=== PATIENT | male | born 1955 | race Caucasian/White ===

== ENCOUNTER 2018-04-09 11:27 | Inpatient (IN) | payer BC, OTHER ==
[~2018-04-09] VITALS: Ht 160 cm; Wt 67.2 kg
[~2018-04-09 11:27] MED LIST: AMLO10TA8 PO; BACL20TA PO; FOSI40TA4 PO; TRAM50TA PO
[2018-04-09] MEDS ORDERED: ONDANSETRON PF 4 MG/2 ML VIAL. IV ONE (11:45)
[2018-04-09] MEDS ORDERED: MORPHINE SULFATE 4 MG/ML VIAL. IV ONE (11:45)
--- NOTE | 2018-04-09 11:45 | PHYS DOC ---
Past Medical History Past Medical History: Arthritis, Hypertension, Other Additional Past Medical Histor: alcohol abuse Past Surgical History: No Surgical History Alcohol Use: Heavy Drug Use: None Adult General Chief Complaint Chief Complaint: GI PROBLEM HPI HPI Patient is a 62 year old male who presents with abdominal pain, nausea, vomiting. Patient also complaint of severe diarrhea, bloody stool. The symptoms started last night. He denies any fever, no recent antibiotic usage. Patient denies any chest pain, no trouble breathing. Patient is not on any blood thinner. Review of Systems Review of Systems Constitutional: Denies fever or chills [] Eyes: Denies change in visual acuity, redness, or eye pain [] HENT: Denies nasal congestion or sore throat [] Respiratory: Denies cough or shortness of breath [] Cardiovascular: No additional information not addressed in HPI [] GI: Positive for abdominal pain, nausea, vomiting, bloody diarrhea [] : Denies dysuria or hematuria [] Musculoskeletal: Denies back pain or joint pain [] Integument: Denies rash or skin lesions [] Neurologic: Denies headache, focal weakness or sensory changes [] Endocrine: Denies polyuria or polydipsia [] All other systems were reviewed and found to be within normal limits, except as documented in this note. Current Medications Current Medications Current Medications Medications (Trade) Dose Ordered Sig/[facility] Start Time Stop Time Status Last Admin Dose Admin Ciprofloxacin/ Dextrose 200 ml @ 200 mls/hr 1X ONCE 04/09/18 13:45 04/09/18 14:44 DC 04/09/18 13:56 200 MLS/HR Iohexol (Omnipaque 300 Mg/ml) 75 ml 1X ONCE 04/09/18 13:00 04/09/18 13:01 DC 04/09/18 13:06 75 ML Metronidazole 100 ml @ 100 mls/hr 1X ONCE 04/09/18 13:45 04/09/18 14:44 DC 04/09/18 16:21 100 MLS/HR Morphine Sulfate (Morphine Sulfate) 2 mg PRN Q2HR PRN 04/09/18 14:15 04/10/18 14:14 04/10/18 04:21 2 MG Ondansetron HCl (Zofran) 4 mg PRN Q8HRS PRN 04/09/18 14:15 04/10/18 14:14 Sodium Chloride 1,000 ml @ 100 mls/hr Q10H 04/09/18 14:15 04/10/18 14:14 04/09/18 20:36 100 MLS/HR Allergies Allergies Allergies Coded Allergies Type Severity Reaction Last Updated Verified Penicillins Allergy Intermediate swelling 06/09/13 Yes Physical Exam Physical Exam Constitutional: Well developed, well nourished, no acute distress, non-toxic appearance. [] HENT: Normocephalic, atraumatic, bilateral external ears normal, oropharynx moist, no oral exudates, nose normal. [] Eyes: PERRLA, EOMI, conjunctiva normal, no discharge. [] Neck: Normal range of motion, no tenderness, supple, no stridor. [] Cardiovascular:Heart rate regular rhythm, no murmur [] Lungs & Thorax: Bilateral breath sounds clear to auscultation [] Abdomen: Bowel sounds normal, soft, Diffuse tenderness to palpation, no masses , no pulsatile masses, NO PERITONEAL SIGNS. [] Skin: Warm, dry, no erythema, no rash. [] Back: No tenderness, no CVA tenderness. [] Extremities: No tenderness, no cyanosis, no clubbing, ROM intact, no edema. [] Neurologic: Alert and oriented X 3, normal motor function, normal sensory function, no focal deficits noted. [] Psychologic: Affect normal, judgement normal, mood normal. [] Current Patient Data Vital Signs Vital Signs Date Time Temp Pulse Resp B/P (MAP) Pulse Ox O2 Delivery O2 Flow Rate FiO2 04/09/18 12:48 88 20 160/76 (104) 98 Room Air 04/09/18 11:35 98.7 98.7 Lab Values Laboratory Tests Test 04/09/18 11:39 White Blood Count 23.7 x10^3/uL (4.0-11.0) H Red Blood Count 4.73 x10^6/uL (4.30-5.70) Hemoglobin 15.5 g/dL (13.0-17.5) Hematocrit 45.0 % (39.0-53.0) Mean Corpuscular Volume 95 fL (79-100) Mean Corpuscular Hemoglobin 33 pg (25-35) Mean Corpuscular Hemoglobin Concent 35 g/dL (31-37) Red Cell Distribution Width 12.8 % (11.5-14.5) Platelet Count 305 x10^3/uL (140-400) Neutrophils (%) (Auto) 86 % (31-73) H Lymphocytes (%) (Auto) 8 % (24-48) L Monocytes (%) (Auto) 6 % (0-9) Eosinophils (%) (Auto) 0 % (0-3) Basophils (%) (Auto) 0 % (0-3) Neutrophils # (Auto) 20.4 x10^3uL (1.8-7.7) H Lymphocytes # (Auto) 2.0 x10^3/uL (1.0-4.8) Monocytes # (Auto) 1.3 x10^3/uL (0.0-1.1) H Eosinophils # (Auto) 0.0 x10^3/uL (0.0-0.7) Basophils # (Auto) 0.1 x10^3/uL (0.0-0.2) Segmented Neutrophils % 83 % (35-66) H Band Neutrophils % 1 % (0-9) Lymphocytes % 7 % (24-48) L Atypical Lymphocytes % (Manual) 1 % (0-0) H Monocytes % 8 % (0-10) Platelet Estimate Adequate (ADEQUATE) Prothrombin Time 13.8 SEC (11.7-14.0) Prothrombin Time INR 1.1 (0.8-1.1) PTT 28 SEC (24-38) Sodium Level 134 mmol/L (136-145) L Potassium Level 3.6 mmol/L (3.5-5.1) Chloride Level 97 mmol/L (98-107) L Carbon Dioxide Level 23 mmol/L (21-32) Anion Gap 14 (6-14) Blood Urea Nitrogen 14 mg/dL (8-26) Creatinine 0.9 mg/dL (0.7-1.3) Estimated GFR (Cockcroft-Gault) 85.2 BUN/Creatinine Ratio 16 (6-20) Glucose Level 185 mg/dL (70-99) H Calcium Level 9.4 mg/dL (8.5-10.1) Total Bilirubin 0.5 mg/dL (0.2-1.0) Aspartate Amino Transferase (AST) 24 U/L (15-37) Alanine Aminotransferase (ALT) 23 U/L (16-63) Alkaline Phosphatase 68 U/L (46-116) Total Protein 8.5 g/dL (6.4-8.2) H Albumin 3.8 g/dL (3.4-5.0) Albumin/Globulin Ratio 0.8 (1.0-1.7) L Laboratory Tests 04/09/18 11:39 Laboratory Tests 04/09/18 11:39 EKG EKG [] Radiology/Procedures Radiology/Procedures [][facility] [address] [place] [address] IMAGING REPORT Signed PATIENT: GABRIELA JAMES ACCOUNT: [id number] : 1955 LOCATION: ER AGE: 62 SEX: M EXAM STATUS: REG ER ORD. PHYSICIAN: ALEX MCDONNELL DO REASON: LOWER ABDOMINAL PAIN, RECTAL BLEEDING PROCEDURE: CT ABD PELV W/ IV CONTRST ONLY CT ABD PELV W/ IV CONTRST ONLY Indication: LOWER ABDOMINAL PAIN, RECTAL BLEEDING SINCE LAST NIGHT
IV OMNI 300 75 MLS Exposure: One or more of the following individualized dose reduction techniques were utilized for this examination: 1. Automated exposure control 2. Adjustment of the mA and/or kV according to patient size 3. Use of iterative reconstruction technique. Comparison: None are available. Contrast: Intravenous contrast was given. No oral contrast per request. Findings: Lung bases are clear. Liver and spleen unremarkable. Pancreas unremarkable. No adrenal mass. Kidneys demonstrate symmetric enhancement without focal lesion. No evidence of obstructive renal calculus or hydronephrosis. No calcified gallstone. Aorta calcified as are major branches, no aneurysm. No significant lymph node enlargement. Wall thickening of descending and distal transverse colon, as well as proximal sigmoid colon, with surrounding fatty stranding and fascial thickening. No evidence of small bowel obstruction. Trace ascites in the right and left paracolic gutters. No evidence of pneumoperitoneum. No evidence of organized fluid collection. Urinary bladder grossly unremarkable. No evidence of pelvic mass. Trace pelvic ascites. Appendix appears within normal limits. Mild degenerative changes of the spine. No destructive bone lesion. IMPRESSION: Diffusely abnormal colon, from the distal transverse colon through the descending and proximal sigmoid colon, most compatible with a nonspecific colitis, could be inflammatory, infectious or ischemic. Trace ascites. Electronically signed by: Francis Salomon MD (04/09/2018 1:27 PM) [facility] DICTATED and SIGNED BY: FRANCIS SALOMON MD DATE: 04/09/18 1320 Course & Med Decision Making Course & Med Decision Making Pertinent Labs and Imaging studies reviewed. (See chart for details) [] Dragon Disclaimer Dragon Disclaimer This electronic medical record was generated, in whole or in part, using a voice recognition dictation system. Departure Departure Impression: Primary Impression: Acute hemorrhagic colitis Disposition: ADMITTED INPATIENT Admitting Physician: Carmen Esqueda Condition: STABLE Referrals: NON,STAFF (PCP) ALEX MCDONNELL DO Apr 09, 2018 11:45
[2018-04-09 11:53] LABS: BASO # 0.1 x10^3/uL (0.0-0.2); BASO % 0 % (0-3); EOS % 0 % (0-3); HEMOGLOBIN 15.5 g/dL (13.0-17.5); LYMPH % 8 % (24-48); MEAN CORPUSCULAR HEMOGLOBIN 33 pg (25-35); MEAN CORPUSCULAR HGB CONC 35 g/dL (31-37); MEAN CORPUSCULAR VOLUME 95 fL (79-100); MONO # 1.3 x10^3/uL (0.0-1.1); MONO % 6 % (0-9); NEUT # 20.4 x10^3uL (1.8-7.7); NEUT % 86 % (31-73); PLATELET COUNT 305 x10^3/uL (140-400); RED BLOOD COUNT 4.73 x10^6/uL (4.30-5.70); RED CELL DISTRIBUTION WIDTH 12.8 % (11.5-14.5); WHITE BLOOD COUNT 23.7 x10^3/uL (4.0-11.0)
[2018-04-09 12:06] LABS: PROTHROMBIN TIME PATIENT 13.8 SEC (11.7-14.0)
[2018-04-09 12:10] LABS: CALCIUM 9.4 mg/dL (8.5-10.1); CREATININE 0.9 mg/dL (0.7-1.3); GFR 85.2; POTASSIUM 3.6 mmol/L (3.5-5.1)
[2018-04-09 12:22] LABS: ALBUMIN 3.8 g/dL (3.4-5.0); ALBUMIN/GLOBULIN RATIO 0.8 (1.0-1.7); TOTAL BILIRUBIN 0.5 mg/dL (0.2-1.0); TOTAL PROTEIN 8.5 g/dL (6.4-8.2)
[2018-04-09 12:51] LABS: % ATYL 1 % (0-0); % BANDS 1 % (0-9); % LYMPHS 7 % (24-48); % MONOS 8 % (0-10); % SEGS 83 % (35-66); PLT ESTIMATE ADEQUATE (ADEQUATE)
[2018-04-09] MEDS ORDERED: IOHEXOL 300 MG/ML 100ML VIAL. IV ONE (13:00)
--- NOTE | 2018-04-09 13:30 | RAD ---
CT ABD PELV W/ IV CONTRST ONLY Indication: LOWER ABDOMINAL PAIN, RECTAL BLEEDING SINCE LAST NIGHT
IV OMNI 300 75 MLS Exposure: One or more of the following individualized dose reduction techniques were utilized for this examination: 1. Automated exposure control 2. Adjustment of the mA and/or kV according to patient size 3. Use of iterative reconstruction technique. Comparison: None are available. Contrast: Intravenous contrast was given. No oral contrast per request. Findings: Lung bases are clear. Liver and spleen unremarkable. Pancreas unremarkable. No adrenal mass. Kidneys demonstrate symmetric enhancement without focal lesion. No evidence of obstructive renal calculus or hydronephrosis. No calcified gallstone. Aorta calcified as are major branches, no aneurysm. No significant lymph node enlargement. Wall thickening of descending and distal transverse colon, as well as proximal sigmoid colon, with surrounding fatty stranding and fascial thickening. No evidence of small bowel obstruction. Trace ascites in the right and left paracolic gutters. No evidence of pneumoperitoneum. No evidence of organized fluid collection. Urinary bladder grossly unremarkable. No evidence of pelvic mass. Trace pelvic ascites. Appendix appears within normal limits. Mild degenerative changes of the spine. No destructive bone lesion. IMPRESSION: Diffusely abnormal colon, from the distal transverse colon through the descending and proximal sigmoid colon, most compatible with a nonspecific colitis, could be inflammatory, infectious or ischemic. Trace ascites. Electronically signed by: Francis Salomon MD (04/09/2018 1:27 PM) [facility]
[2018-04-09] MEDS ORDERED: CIPROFLOXACIN 400MG PREMIX 200 ML IV ONE (13:45)
[2018-04-09] MEDS ORDERED: ONDANSETRON PF 4 MG/2 ML VIAL. IV PRN (14:15)
[2018-04-09 15:55] VITALS: BP 180/84
[2018-04-09] MEDS: IV NORMAL SALINE 1000ML BAG 1,000 ML IV SCH ×2 (16:26→20:36)
[2018-04-09] MEDS: MORPHINE SULFATE 4 MG/ML VIAL. IV PRN ×2 (16:28→20:31)
[2018-04-09 16:35] LABS: FECAL OB PT POSITIVE (NEG)
--- NOTE | 2018-04-09 16:44 | PDOC1 ---
History and Physical Date of Admission Date of Admission DATE: 04/09/18 TIME: 16:43 History of Present Illness History of Present Illness Mr. Peacock, is a 62 year old male admit from ER with acute 8/10 abdominal pain , w/ nausea, vomiting. New diarrhea, bloody stool, very liquid. Abd pain start last night. He denies any fever, no recent antibiotic usage. 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, driving a forklift, and that it was cause GI irritation, per MSDS data sheet Past Medical History Cardiovascular: HTN Pulmonary: No pertinent hx Psych: No pertinent hx Past Surgical History Past Surgical History: No pertinent history Social History Smoke: <1 pack per day ALCOHOL: rare Drugs: None Current Problem List Problem List Problems Medical Problems: (1) Acute hemorrhagic colitis Status: Acute Current Medications Current Medications Current Medications Morphine Sulfate (Morphine Sulfate) 4 mg 1X ONCE IV Last administered on at 11:55; Start 04/09/18 at 11:45; Stop 04/09/18 at 11:46; Status DC Ondansetron HCl (Zofran) 4 mg 1X ONCE IV Last administered on 04/09/18at 11:55 ; Start 04/09/18 at 11:45; Stop 04/09/18 at 11:46; Status DC Iohexol (Omnipaque 300 Mg/ml) 75 ml 1X ONCE IV Last administered on 04/09/18at 13:06; Start 04/09/18 at 13:00; Stop 04/09/18 at 13:01; Status DC Ciprofloxacin/ Dextrose 200 ml @ 200 mls/hr 1X ONCE IV Last administered on at 13:56; Start 04/09/18 at 13:45; Stop 04/09/18 at 14:44; Status DC Metronidazole 100 ml @ 100 mls/hr 1X ONCE IV Last administered on 04/09/18at 16:21; Start 04/09/18 at 13:45; Stop 04/09/18 at 14:44; Status DC Ondansetron HCl (Zofran) 4 mg PRN Q8HRS PRN IV NAUSEA/VOMITING; Start 04/09/18 at 14:15; Stop 04/10/18 at 14:14 Morphine Sulfate (Morphine Sulfate) 2 mg PRN Q2HR PRN IV PAIN Last administered on 04/09/18at 16:28; Start 04/09/18 at 14:15; Stop 04/10/18 at 14:14 Sodium Chloride 1,000 ml @ 100 mls/hr Q10H IV Last administered on 04/09/18at 16:26; Start 04/09/18 at 14:15; Stop 04/10/18 at 14:14 Ciprofloxacin (Cipro) 500 mg BID PO ; Start 04/09/18 at 21:00 Metronidazole (Flagyl) 500 mg Q8HRS PO ; Start 04/09/18 at 22:00 Amlodipine Besylate (Norvasc) 5 mg BID PO ; Start 04/09/18 at 21:00 Tramadol HCl (Ultram) 50 mg TID PRN PO PAIN; Start 04/09/18 at 16:45 Baclofen (Lioresal) 10 mg TID PO ; Start 04/09/18 at 21:00 Lisinopril (Prinivil) 20 mg BID PO ; Start 04/09/18 at 21:00 Active Scripts Active Reported Baclofen 20 Mg Tablet 10 Mg PO TID Fosinopril Sodium 40 Mg Tablet 20 Mg PO BID Amlodipine Besylate 10 Mg Tablet 5 Mg PO BID Tramadol Hcl 50 Mg Tablet 50 Mg PO TID PRN Allergies Allergies: Coded Allergies: Penicillins (Verified Allergy, Intermediate, swelling, 06/09/13) ROS General: No: Chills, Night Sweats, Fatigue, Malaise, Appetite, Other PSYCHOLOGICAL ROS: No: Anxiety, Behavioral Disorder, Concentration difficultie , Decreased libido, Depression, Disorientation, Hallucinations, Hostility, Irritablity, Memory difficulties, Mood Swings, Obsessive thoughts, Physical abuse, Sexual abuse, Sleep disturbances, Suicidal ideation, Other Eyes: No Blurry vision, No Decreased vision, No Double vision, No Dry eyes, No Excessive tearing, No Eye Pain, No Itchy Eyes, No Loss of vision, No Photophobia , No Scotomata, No Uses contacts, No Uses glasses, No Other Respiratory: No: Cough, Hemoptysis, Orthopnea, Pleuritic Pain, Shortness of breath, SOB with excertion, Sputum Changes, Stridor, Tachypnea, Wheezing, Other Cardiovascular: No Chest Pain, No Palpitations, No Orthopnea, No Paroxysmal Noc. Dyspnea, No Edema, No Lt Headedness, No Other Gastrointestinal: Yes Nausea, Yes Abdominal Pain, Yes Diarrhea, Yes Hematochezia Genitourinary: No Dysuria, No Frequency, No Incontinence, No Hematuria, No Retention, No Discharge, No Urgency, No Pain, No Flank Pain, No Other, No , No , No , No , No , No , No Musculoskeletal: No Gait Disturbance, No Joint Pain, No Joint Stiffness, No Joint Swelling, No Muscle Pain, No Muscular Weakness, No Pain In:, No Swelling In:, No Other Neurological: No Behavorial Changes, No Bowel/Bladder ControlChng, No Confusion , No Dizziness, No Gait Disturbance, No Headaches, No Impaired Coord/balance, No Memory Loss, No Numbness/Tingling, No Seizures, No Speech Problems, No Tremors, No Visual Changes, No Weakness, No Other Skin: No Dry Skin, No Eczema, No Hair Changes, No Lumps, No Mole Changes, No Mottling, No Nail Changes, No Pruritus, No Rash, No Skin Lesion Changes, No Other, No Acne Physical Exam General: Alert, Oriented X3, Cooperative, No acute distress HEENT: Atraumatic, PERRLA, Mucous membr. moist/pink Lungs: Normal air movement Heart: no gallops, no murmurs Abdomen: Soft (tender, no masses, normal sounds), No masses, Other (no guarding, no rebound, no peritoneal signh) Extremities: No clubbing, No edema Skin: No rashes, No breakdown, No significant lesion Neuro: Normal speech, Sensation intact Psych/Mental Status: Mental status NL Vitals Vitals Vital Signs Date Time Temp Pulse Resp B/P (MAP) Pulse Ox O2 Delivery O2 Flow Rate FiO2 04/09/18 16:28 Room Air 04/09/18 15:55 97.6 81 20 180/84 (116) 98 97.6 Labs Labs Laboratory Tests Test 04/09/18 11:39 04/09/18 15:48 White Blood Count 23.7 x10^3/uL (4.0-11.0) Red Blood Count 4.73 x10^6/uL (4.30-5.70) Hemoglobin 15.5 g/dL (13.0-17.5) Hematocrit 45.0 % (39.0-53.0) Mean Corpuscular Volume 95 fL (79-100) Mean Corpuscular Hemoglobin 33 pg (25-35) Mean Corpuscular Hemoglobin Concent 35 g/dL (31-37) Red Cell Distribution Width 12.8 % (11.5-14.5) Platelet Count 305 x10^3/uL (140-400) Neutrophils (%) (Auto) 86 % (31-73) Lymphocytes (%) (Auto) 8 % (24-48) Monocytes (%) (Auto) 6 % (0-9) Eosinophils (%) (Auto) 0 % (0-3) Basophils (%) (Auto) 0 % (0-3) Neutrophils # (Auto) 20.4 x10^3uL (1.8-7.7) Lymphocytes # (Auto) 2.0 x10^3/uL (1.0-4.8) Monocytes # (Auto) 1.3 x10^3/uL (0.0-1.1) Eosinophils # (Auto) 0.0 x10^3/uL (0.0-0.7) Basophils # (Auto) 0.1 x10^3/uL (0.0-0.2) Segmented Neutrophils % 83 % (35-66) Band Neutrophils % 1 % (0-9) Lymphocytes % 7 % (24-48) Atypical Lymphocytes % (Manual) 1 % (0-0) Monocytes % 8 % (0-10) Platelet Estimate Adequate (ADEQUATE) Prothrombin Time 13.8 SEC (11.7-14.0) Prothromb Time International Ratio 1.1 (0.8-1.1) Activated Partial Thromboplast Time 28 SEC (24-38) Sodium Level 134 mmol/L (136-145) Potassium Level 3.6 mmol/L (3.5-5.1) Chloride Level 97 mmol/L (98-107) Carbon Dioxide Level 23 mmol/L (21-32) Anion Gap 14 (6-14) Blood Urea Nitrogen 14 mg/dL (8-26) Creatinine 0.9 mg/dL (0.7-1.3) Estimated GFR (Cockcroft-Gault) 85.2 BUN/Creatinine Ratio 16 (6-20) Glucose Level 185 mg/dL (70-99) Calcium Level 9.4 mg/dL (8.5-10.1) Total Bilirubin 0.5 mg/dL (0.2-1.0) Aspartate Amino Transf (AST/SGOT) 24 U/L (15-37) Alanine Aminotransferase (ALT/SGPT) 23 U/L (16-63) Alkaline Phosphatase 68 U/L (46-116) Total Protein 8.5 g/dL (6.4-8.2) Albumin 3.8 g/dL (3.4-5.0) Albumin/Globulin Ratio 0.8 (1.0-1.7) Stool Occult Blood Positive (NEG) Laboratory Tests Test 04/09/18 11:39 04/09/18 15:48 White Blood Count 23.7 x10^3/uL (4.0-11.0) Red Blood Count 4.73 x10^6/uL (4.30-5.70) Hemoglobin 15.5 g/dL (13.0-17.5) Hematocrit 45.0 % (39.0-53.0) Mean Corpuscular Volume 95 fL (79-100) Mean Corpuscular Hemoglobin 33 pg (25-35) Mean Corpuscular Hemoglobin Concent 35 g/dL (31-37) Red Cell Distribution Width 12.8 % (11.5-14.5) Platelet Count 305 x10^3/uL (140-400) Neutrophils (%) (Auto) 86 % (31-73) Lymphocytes (%) (Auto) 8 % (24-48) Monocytes (%) (Auto) 6 % (0-9) Eosinophils (%) (Auto) 0 % (0-3) Basophils (%) (Auto) 0 % (0-3) Neutrophils # (Auto) 20.4 x10^3uL (1.8-7.7) Lymphocytes # (Auto) 2.0 x10^3/uL (1.0-4.8) Monocytes # (Auto) 1.3 x10^3/uL (0.0-1.1) Eosinophils # (Auto) 0.0 x10^3/uL (0.0-0.7) Basophils # (Auto) 0.1 x10^3/uL (0.0-0.2) Segmented Neutrophils % 83 % (35-66) Band Neutrophils % 1 % (0-9) Lymphocytes % 7 % (24-48) Atypical Lymphocytes % (Manual) 1 % (0-0) Monocytes % 8 % (0-10) Platelet Estimate Adequate (ADEQUATE) Prothrombin Time 13.8 SEC (11.7-14.0) Prothromb Time International Ratio 1.1 (0.8-1.1) Activated Partial Thromboplast Time 28 SEC (24-38) Sodium Level 134 mmol/L (136-145) Potassium Level 3.6 mmol/L (3.5-5.1) Chloride Level 97 mmol/L (98-107) Carbon Dioxide Level 23 mmol/L (21-32) Anion Gap 14 (6-14) Blood Urea Nitrogen 14 mg/dL (8-26) Creatinine 0.9 mg/dL (0.7-1.3) Estimated GFR (Cockcroft-Gault) 85.2 BUN/Creatinine Ratio 16 (6-20) Glucose Level 185 mg/dL (70-99) Calcium Level 9.4 mg/dL (8.5-10.1) Total Bilirubin 0.5 mg/dL (0.2-1.0) Aspartate Amino Transf (AST/SGOT) 24 U/L (15-37) Alanine Aminotransferase (ALT/SGPT) 23 U/L (16-63) Alkaline Phosphatase 68 U/L (46-116) Total Protein 8.5 g/dL (6.4-8.2) Albumin 3.8 g/dL (3.4-5.0) Albumin/Globulin Ratio 0.8 (1.0-1.7) Stool Occult Blood Positive (NEG) VTE Prophylaxis Ordered VTE Prophylaxis Devices: Yes VTE Pharmacological Prophylaxi: Contraindicated Assessment/Plan Assessment/Plan Acute colitis bright red blood per rectum infectious colitis likely, cx, r/o others cont Cipro and flagyl GI consult admit Hgb good, pt hypertensive, NPO for now, IV fluid if BP allows,. add BP meds tobacco use, APRYL TOMAS MD Apr 09, 2018 16:43
[2018-04-09] MEDS ORDERED: ESCITALOPRAM OX10 MG PO (16:55)
[2018-04-09] MEDS ORDERED: ASPI81TA50 PO (16:55)
[2018-04-09] MEDS ORDERED: SIMV20TA3 PO (16:55)
[2018-04-09] MEDS ORDERED: TIZA4TAB PO (16:55)
[2018-04-09] MEDS ORDERED: OMEP40CA5 PO (16:55)
[2018-04-09] MEDS: CARVEDILOL 6.25 MG TABLET. PO SCH (17:49)
[2018-04-09] MEDS ORDERED: NICOTINE 14MG PATCH. TD PRN (18:30)
[2018-04-09 19:00] VITALS: BP 174/77
[2018-04-09] MEDS: CIPROFLOXACIN HCL 250 MG TABLET. PO SCH (20:27)
[2018-04-09] MEDS: CITALOPRAM 20 MG TABLET. PO SCH (20:27)
[2018-04-09] MEDS: tiZANidine 4 MG TABLET. PO SCH (20:27)
[2018-04-09] MEDS: SIMVASTATIN 20 MG TABLET PO SCH (20:27)
[2018-04-09] MEDS: LISINOPRIL 20 MG TABLET PO SCH (20:28)
[2018-04-09] MEDS: amLODIPine BESYLATE 5 MG TABLET PO SCH (20:29)
[2018-04-09] MEDS: traMADol 50 MG TABLET PO PRN (20:30)
[2018-04-09] MEDS: metroNIDAZOLE 500 MG TABLET PO SCH (20:36)
[2018-04-09] MEDS ORDERED: BACLOFEN 10 MG TABLET. PO SCH (21:00)
[2018-04-09 22:28] LABS: HEMATOCRIT 39.1 % (39.0-53.0); HEMOGLOBIN 13.3 g/dL (13.0-17.5); RED BLOOD COUNT 4.11 x10^6/uL (4.30-5.70); RED CELL DISTRIBUTION WIDTH 12.8 % (11.5-14.5); WHITE BLOOD COUNT 22.1 x10^3/uL (4.0-11.0)
[2018-04-09 23:00] VITALS: BP 117/60
[2018-04-10 03:00] VITALS: BP 135/77
[2018-04-10] MEDS: MORPHINE SULFATE 4 MG/ML VIAL. IV PRN ×3 (04:21→12:36)
[2018-04-10 04:38] LABS: BASO # 0.1 x10^3/uL (0.0-0.2); BASO % 0 % (0-3); EOS # 0.1 x10^3/uL (0.0-0.7); EOS % 1 % (0-3); HEMATOCRIT 38.7 % (39.0-53.0); HEMOGLOBIN 13.2 g/dL (13.0-17.5); LYMPH # 2.4 x10^3/uL (1.0-4.8); LYMPH % 12 % (24-48); MEAN CORPUSCULAR HEMOGLOBIN 33 pg (25-35); MEAN CORPUSCULAR HGB CONC 34 g/dL (31-37); MEAN CORPUSCULAR VOLUME 96 fL (79-100); MONO # 1.5 x10^3/uL (0.0-1.1); MONO % 8 % (0-9); NEUT # 15.1 x10^3uL (1.8-7.7); NEUT % 79 % (31-73); PLATELET COUNT 251 x10^3/uL (140-400); RED BLOOD COUNT 4.03 x10^6/uL (4.30-5.70); RED CELL DISTRIBUTION WIDTH 12.8 % (11.5-14.5)
[2018-04-10 04:43] LABS: CALCIUM 8.4 mg/dL (8.5-10.1); GFR 75.5; POTASSIUM 3.4 mmol/L (3.5-5.1)
[2018-04-10] MEDS: metroNIDAZOLE 500 MG TABLET PO SCH ×2 (06:01→14:00)
[2018-04-10 07:00] VITALS: BP 170/77
[2018-04-10] MEDS: PANTOPRAZOLE 40 MG TABLET.DR. PO SCH (08:10)
[2018-04-10] MEDS: LISINOPRIL 20 MG TABLET PO SCH ×2 (08:10→20:46)
[2018-04-10] MEDS: amLODIPine BESYLATE 5 MG TABLET PO SCH ×2 (08:11→20:48)
[2018-04-10] MEDS: CARVEDILOL 6.25 MG TABLET. PO SCH ×2 (08:11→17:24)
[2018-04-10] MEDS: CIPROFLOXACIN HCL 250 MG TABLET. PO SCH (08:11)
[2018-04-10] MEDS: tiZANidine 4 MG TABLET. PO SCH ×2 (08:12→20:49)
--- NOTE | 2018-04-10 09:44 | NUR ---
SW reviewed pt's medical chart and evaluated for potential dc needs. Pt is from home with spouse and was admitted for acute hemorrhagic colitis. PT/OT has not been ordered and there are no dc needs at this time. SW will be available if pt's condition changes and there is a need for services.
--- NOTE | 2018-04-10 09:47 | PDOC2 ---
GI CONSULT Reason For Consult: Colitis/chantal blood HPI: HPI: 62 y/o male admitted through ER. 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 Had some lightheadedness at that time. Saw his doctor, took an antibiotic and was started on omeprazole QD. Upper abd symptoms have improved but not resolved. On Tuesday, developed mid abdominal pain "like gas pressure " and had diarrhea followed by passage of red blood. Bleeding has continued along w/ diffuse constant abd pain that is briefly relieved after stooling. No history of GERD until now. No n/v, change in appetite, or weight loss. No dysphagia. Typically no issues w/ diarrhea or constipation. No melena. No previous EGD (though our office records indicate that EGD was planned at in 2005 as part of treatment plan for Hep C). Reports colonoscopy at [facility] in [place] ~ 4 years ago w/ polyps - this was done for painless bleeding. H/o Hep C - says treated at [facility]. Denies GB, pancreas, or PUD history. Takes Tramadol and ASA, denies NSAIDs. WBC 23.7 to 19, Hgb 15.5 to 13.2, fecal occult positive. Normal plt, INR, BUN, and Cr. C Diff, stool cx, and fecal WBCs pending. On PO Flagyl, Cipro, and pantoprazole. On CT: diffusely abnormal colon most cc/w nonspecific colitis. PMH: PMH: HTN, borderline HLD, ?GERD, BPH, depression, colon polyps, Hep C removal of benign cyst in right inguinal region FH: Family History: Cancer (father - prostate), Other (grandmother - cirrhosis, ? Hep C; mother - heart attack; father - COPD) Social History: Smoke: <1 pack per day ALCOHOL: heavy (half of 1/2 pint of 70 proof [employer] [place] daily) Drugs: Marijuana ROS: GEN: Denies fevers, chills, sweats HEENT: Denies blurred vision, sore throat CV: Denies chest pain RESP: Denies shortness of air, cough GI: Per HPI : Denies hematuria, dysuria ENDO: Denies weight changes NEURO: Denies confusion, dizziness MSK: Denies weakness, joint pain/swelling SKIN: Denies jaundice, pruritus Vitals: Vitals: Vital Signs Date Time Temp Pulse Resp B/P (MAP) Pulse Ox O2 Delivery O2 Flow Rate FiO2 04/10/18 08:42 Room Air 04/10/18 08:11 67 170/77 04/10/18 07:00 98.2 18 94 98.2 Labs: Labs: Laboratory Tests Test 04/09/18 11:39 04/09/18 15:48 04/09/18 22:15 04/10/18 04:05 White Blood Count 23.7 x10^3/uL (4.0-11.0) 22.1 x10^3/uL (4.0-11.0) 19.0 x10^3/uL (4.0-11.0) Red Blood Count 4.73 x10^6/uL (4.30-5.70) 4.11 x10^6/uL (4.30-5.70) 4.03 x10^6/uL (4.30-5.70) Hemoglobin 15.5 g/dL (13.0-17.5) 13.3 g/dL (13.0-17.5) 13.2 g/dL (13.0-17.5) Hematocrit 45.0 % (39.0-53.0) 39.1 % (39.0-53.0) 38.7 % (39.0-53.0) Mean Corpuscular Volume 95 fL (79-100) 95 fL (79-100) 96 fL (79-100) Mean Corpuscular Hemoglobin 33 pg (25-35) 32 pg (25-35) 33 pg (25-35) Mean Corpuscular Hemoglobin Concent 35 g/dL (31-37) 34 g/dL (31-37) 34 g/dL (31-37) Red Cell Distribution Width 12.8 % (11.5-14.5) 12.8 % (11.5-14.5) 12.8 % (11.5-14.5) Platelet Count 305 x10^3/uL (140-400) 262 x10^3/uL (140-400) 251 x10^3/uL (140-400) Neutrophils (%) (Auto) 86 % (31-73) 79 % (31-73) Lymphocytes (%) (Auto) 8 % (24-48) 12 % (24-48) Monocytes (%) (Auto) 6 % (0-9) 8 % (0-9) Eosinophils (%) (Auto) 0 % (0-3) 1 % (0-3) Basophils (%) (Auto) 0 % (0-3) 0 % (0-3) Neutrophils # (Auto) 20.4 x10^3uL (1.8-7.7) 15.1 x10^3uL (1.8-7.7) Lymphocytes # (Auto) 2.0 x10^3/uL (1.0-4.8) 2.4 x10^3/uL (1.0-4.8) Monocytes # (Auto) 1.3 x10^3/uL (0.0-1.1) 1.5 x10^3/uL (0.0-1.1) Eosinophils # (Auto) 0.0 x10^3/uL (0.0-0.7) 0.1 x10^3/uL (0.0-0.7) Basophils # (Auto) 0.1 x10^3/uL (0.0-0.2) 0.1 x10^3/uL (0.0-0.2) Segmented Neutrophils % 83 % (35-66) Band Neutrophils % 1 % (0-9) Lymphocytes % 7 % (24-48) Atypical Lymphocytes % (Manual) 1 % (0-0) Monocytes % 8 % (0-10) Platelet Estimate Adequate (ADEQUATE) Prothrombin Time 13.8 SEC (11.7-14.0) Prothromb Time International Ratio 1.1 (0.8-1.1) Activated Partial Thromboplast Time 28 SEC (24-38) Sodium Level 134 mmol/L (136-145) 137 mmol/L (136-145) Potassium Level 3.6 mmol/L (3.5-5.1) 3.4 mmol/L (3.5-5.1) Chloride Level 97 mmol/L (98-107) 100 mmol/L (98-107) Carbon Dioxide Level 23 mmol/L (21-32) 26 mmol/L (21-32) Anion Gap 14 (6-14) 11 (6-14) Blood Urea Nitrogen 14 mg/dL (8-26) 16 mg/dL (8-26) Creatinine 0.9 mg/dL (0.7-1.3) 1.0 mg/dL (0.7-1.3) Estimated GFR (Cockcroft-Gault) 85.2 75.5 BUN/Creatinine Ratio 16 (6-20) Glucose Level 185 mg/dL (70-99) 152 mg/dL (70-99) Calcium Level 9.4 mg/dL (8.5-10.1) 8.4 mg/dL (8.5-10.1) Total Bilirubin 0.5 mg/dL (0.2-1.0) Aspartate Amino Transf (AST/SGOT) 24 U/L (15-37) Alanine Aminotransferase (ALT/SGPT) 23 U/L (16-63) Alkaline Phosphatase 68 U/L (46-116) Total Protein 8.5 g/dL (6.4-8.2) Albumin 3.8 g/dL (3.4-5.0) Albumin/Globulin Ratio 0.8 (1.0-1.7) Stool Occult Blood Positive (NEG) Allergies: Coded Allergies: Penicillins (Verified Allergy, Intermediate, swelling, 06/09/13) Medications: Current Medications Medications (Trade) Dose Ordered Sig/Pat Route PRN Reason Start Time Stop Time Status Last Admin Dose Admin Morphine Sulfate (Morphine Sulfate) 4 mg 1X ONCE IV 04/09/18 11:45 04/09/18 11:46 DC 04/09/18 11:55 Ondansetron HCl (Zofran) 4 mg 1X ONCE IV 04/09/18 11:45 04/09/18 11:46 DC 04/09/18 11:55 Iohexol (Omnipaque 300 Mg/ml) 75 ml 1X ONCE IV 04/09/18 13:00 04/09/18 13:01 DC 04/09/18 13:06 Ciprofloxacin/ Dextrose 200 ml @ 200 mls/hr 1X ONCE IV 04/09/18 13:45 04/09/18 14:44 DC 04/09/18 13:56 Metronidazole 100 ml @ 100 mls/hr 1X ONCE IV 04/09/18 13:45 04/09/18 14:44 DC 04/09/18 16:21 Morphine Sulfate (Morphine Sulfate) 2 mg PRN Q2HR PRN IV PAIN 04/09/18 14:15 04/10/18 14:14 04/10/18 08:12 Sodium Chloride 1,000 ml @ 100 mls/hr Q10H IV 04/09/18 14:15 04/10/18 14:14 04/09/18 20:36 Ciprofloxacin (Cipro) 500 mg BID PO 04/09/18 21:00 04/10/18 08:11 Metronidazole (Flagyl) 500 mg Q8HRS PO 04/09/18 22:00 04/10/18 06:01 Amlodipine Besylate (Norvasc) 5 mg BID PO 04/09/18 21:00 04/10/18 08:11 Tramadol HCl (Ultram) 50 mg TID PRN PO PAIN 04/09/18 16:45 04/09/18 20:30 Lisinopril (Prinivil) 20 mg BID PO 04/09/18 21:00 04/10/18 08:10 Carvedilol (Coreg) 6.25 mg BIDWMEALS PO 04/09/18 17:00 04/10/18 08:11 Citalopram Hydrobromide (CeleXA) 20 mg QHS PO 04/09/18 21:00 04/09/18 20:27 Pantoprazole Sodium (Protonix) 40 mg DAILYAC PO 04/10/18 07:30 04/10/18 08:10 Simvastatin (Zocor) 20 mg HS PO 04/09/18 21:00 04/09/18 20:27 Tizanidine HCl (Zanaflex) 4 mg BID PO 04/09/18 21:00 04/10/18 08:12 Imaging: Imaging: CT A/P w/ IV contrast 04/09/18 Findings: Lung bases are clear. Liver and spleen unremarkable. Pancreas unremarkable. No adrenal mass. Kidneys demonstrate symmetric enhancement without focal lesion. No evidence of obstructive renal calculus or hydronephrosis. No calcified gallstone. Aorta calcified as are major branches, no aneurysm. No significant lymph node enlargement. Wall thickening of descending and distal transverse colon, as well as proximal sigmoid colon, with surrounding fatty stranding and fascial thickening. No evidence of small bowel obstruction. Trace ascites in the right and left paracolic gutters. No evidence of pneumoperitoneum. No evidence of organized fluid collection. Urinary bladder grossly unremarkable. No evidence of pelvic mass. Trace pelvic ascites. Appendix appears within normal limits. Mild degenerative changes of the spine. No destructive bone lesion. IMPRESSION: Diffusely abnormal colon, from the distal transverse colon through the descending and proximal sigmoid colon, most compatible with a nonspecific colitis, could be inflammatory, infectious or ischemic. Trace ascites. PE: GEN: NAD HEENT: Atraumatic, PERRL, poor dentition LUNGS: diminished anteriorly HEART: RRR ABD: NABS, soft, maybe slightly distended, tender diffusely to light touch EXTREMITY: No edema SKIN: No rashes, no jaundice NEURO/PSYCH: A & O 3 A/P: A/P: Diffuse abd pain, hematochezia/diarrhea Leukocytosis Abnormal CT - nonspecific colitis GERD - ?new onset, recently took atbx and started PPI CRC screen, h/o polyps - says colonoscopy @ [facility] ~4 years ago H/o Hep C - says treated ASA use +alcohol +tobacco -- Await stool tests. ?try clears - will review w/ Dr. Quiroz. Agree w/ PPI. NORA STAPLES Apr 10, 2018 09:47
[2018-04-10 10:48] VITALS: BP 86/54
--- NOTE | 2018-04-10 13:26 | PDOC ---
PROGRESS NOTES History of Present Illness History of Present Illness Assessment/Plan Assessment/Plan Acute colitis pos fecal leukocytes bright red blood per rectum infectious colitis likely, cx, r/o others heavy alcohol use hx cont Cipro and flagyl GI consult admit 04/10 at risk for alcohol withdrawal 04/10 will use protocol per my personal review of ct images has severe colitis Hgb good, pt hypertensive, IV fluid if BP allows,. add BP meds tobacco use, education provided for cessation alcohol withdrawal precautions Vitals Vitals Vital Signs Date Time Temp Pulse Resp B/P (MAP) Pulse Ox O2 Delivery O2 Flow Rate FiO2 04/10/18 13:02 Room Air 04/10/18 10:48 98.0 65 18 86/54 (65) 98 98.0 Physical Exam General: Alert, Oriented X3, Cooperative, No acute distress, mild distress Heart: Regular rate Lungs: Clear Abdomen: Normal bowel sounds, Soft (tender, no masses, normal sounds), No masses, Other (no guarding, no rebound, no peritoneal sign) Extremities: No clubbing, No cyanosis, No edema Skin: No rashes, No breakdown, No significant lesion Labs LABS Exposure: One or more of the following individualized dose reduction techniques were utilized for this examination: 1. Automated exposure control 2. Adjustment of the mA and/or kV according to patient size 3. Use of iterative reconstruction technique. Comparison: None are available. Contrast: Intravenous contrast was given. No oral contrast per request. Findings: Lung bases are clear. Liver and spleen unremarkable. Pancreas unremarkable. No adrenal mass. Kidneys demonstrate symmetric enhancement without focal lesion. No evidence of obstructive renal calculus or hydronephrosis. No calcified gallstone. Aorta calcified as are major branches, no aneurysm. No significant lymph node enlargement. Wall thickening of descending and distal transverse colon, as well as proximal sigmoid colon, with surrounding fatty stranding and fascial thickening. No evidence of small bowel obstruction. Trace ascites in the right and left paracolic gutters. No evidence of pneumoperitoneum. No evidence of organized fluid collection. Urinary bladder grossly unremarkable. No evidence of pelvic mass. Trace pelvic ascites. Appendix appears within normal limits. Mild degenerative changes of the spine. No destructive bone lesion. IMPRESSION: Diffusely abnormal colon, from the distal transverse colon through the descending and proximal sigmoid colon, most compatible with a nonspecific colitis, could be inflammatory, infectious or ischemic. Trace ascites. Electronically signed by: Judy Salomon MD (04/09/2018 1:27 PM) [facility] DICTATED and SIGNED BY: JUDY SALOMON MD DATE: 04/09/18 1324 Laboratory Tests Test 04/09/18 15:48 04/09/18 22:15 04/10/18 04:05 Stool Occult Blood Positive (NEG) White Blood Count 22.1 x10^3/uL (4.0-11.0) 19.0 x10^3/uL (4.0-11.0) Red Blood Count 4.11 x10^6/uL (4.30-5.70) 4.03 x10^6/uL (4.30-5.70) Hemoglobin 13.3 g/dL (13.0-17.5) 13.2 g/dL (13.0-17.5) Hematocrit 39.1 % (39.0-53.0) 38.7 % (39.0-53.0) Mean Corpuscular Volume 95 fL (79-100) 96 fL (79-100) Mean Corpuscular Hemoglobin 32 pg (25-35) 33 pg (25-35) Mean Corpuscular Hemoglobin Concent 34 g/dL (31-37) 34 g/dL (31-37) Red Cell Distribution Width 12.8 % (11.5-14.5) 12.8 % (11.5-14.5) Platelet Count 262 x10^3/uL (140-400) 251 x10^3/uL (140-400) Neutrophils (%) (Auto) 79 % (31-73) Lymphocytes (%) (Auto) 12 % (24-48) Monocytes (%) (Auto) 8 % (0-9) Eosinophils (%) (Auto) 1 % (0-3) Basophils (%) (Auto) 0 % (0-3) Neutrophils # (Auto) 15.1 x10^3uL (1.8-7.7) Lymphocytes # (Auto) 2.4 x10^3/uL (1.0-4.8) Monocytes # (Auto) 1.5 x10^3/uL (0.0-1.1) Eosinophils # (Auto) 0.1 x10^3/uL (0.0-0.7) Basophils # (Auto) 0.1 x10^3/uL (0.0-0.2) Sodium Level 137 mmol/L (136-145) Potassium Level 3.4 mmol/L (3.5-5.1) Chloride Level 100 mmol/L (98-107) Carbon Dioxide Level 26 mmol/L (21-32) Anion Gap 11 (6-14) Blood Urea Nitrogen 16 mg/dL (8-26) Creatinine 1.0 mg/dL (0.7-1.3) Estimated GFR (Cockcroft-Gault) 75.5 Glucose Level 152 mg/dL (70-99) Calcium Level 8.4 mg/dL (8.5-10.1) Assessment and Plan Assessmemt and Plan Problems Medical Problems: (1) Acute hemorrhagic colitis Status: Acute Comment Review of Relevant I have reviewed the following items reena (where applicable) has been applied. Labs Laboratory Tests Test 04/09/18 11:39 04/09/18 15:48 04/09/18 22:15 04/10/18 04:05 White Blood Count 23.7 x10^3/uL (4.0-11.0) 22.1 x10^3/uL (4.0-11.0) 19.0 x10^3/uL (4.0-11.0) Red Blood Count 4.73 x10^6/uL (4.30-5.70) 4.11 x10^6/uL (4.30-5.70) 4.03 x10^6/uL (4.30-5.70) Hemoglobin 15.5 g/dL (13.0-17.5) 13.3 g/dL (13.0-17.5) 13.2 g/dL (13.0-17.5) Hematocrit 45.0 % (39.0-53.0) 39.1 % (39.0-53.0) 38.7 % (39.0-53.0) Mean Corpuscular Volume 95 fL (79-100) 95 fL (79-100) 96 fL (79-100) Mean Corpuscular Hemoglobin 33 pg (25-35) 32 pg (25-35) 33 pg (25-35) Mean Corpuscular Hemoglobin Concent 35 g/dL (31-37) 34 g/dL (31-37) 34 g/dL (31-37) Red Cell Distribution Width 12.8 % (11.5-14.5) 12.8 % (11.5-14.5) 12.8 % (11.5-14.5) Platelet Count 305 x10^3/uL (140-400) 262 x10^3/uL (140-400) 251 x10^3/uL (140-400) Neutrophils (%) (Auto) 86 % (31-73) 79 % (31-73) Lymphocytes (%) (Auto) 8 % (24-48) 12 % (24-48) Monocytes (%) (Auto) 6 % (0-9) 8 % (0-9) Eosinophils (%) (Auto) 0 % (0-3) 1 % (0-3) Basophils (%) (Auto) 0 % (0-3) 0 % (0-3) Neutrophils # (Auto) 20.4 x10^3uL (1.8-7.7) 15.1 x10^3uL (1.8-7.7) Lymphocytes # (Auto) 2.0 x10^3/uL (1.0-4.8) 2.4 x10^3/uL (1.0-4.8) Monocytes # (Auto) 1.3 x10^3/uL (0.0-1.1) 1.5 x10^3/uL (0.0-1.1) Eosinophils # (Auto) 0.0 x10^3/uL (0.0-0.7) 0.1 x10^3/uL (0.0-0.7) Basophils # (Auto) 0.1 x10^3/uL (0.0-0.2) 0.1 x10^3/uL (0.0-0.2) Segmented Neutrophils % 83 % (35-66) Band Neutrophils % 1 % (0-9) Lymphocytes % 7 % (24-48) Atypical Lymphocytes % (Manual) 1 % (0-0) Monocytes % 8 % (0-10) Platelet Estimate Adequate (ADEQUATE) Prothrombin Time 13.8 SEC (11.7-14.0) Prothromb Time International Ratio 1.1 (0.8-1.1) Activated Partial Thromboplast Time 28 SEC (24-38) Sodium Level 134 mmol/L (136-145) 137 mmol/L (136-145) Potassium Level 3.6 mmol/L (3.5-5.1) 3.4 mmol/L (3.5-5.1) Chloride Level 97 mmol/L (98-107) 100 mmol/L (98-107) Carbon Dioxide Level 23 mmol/L (21-32) 26 mmol/L (21-32) Anion Gap 14 (6-14) 11 (6-14) Blood Urea Nitrogen 14 mg/dL (8-26) 16 mg/dL (8-26) Creatinine 0.9 mg/dL (0.7-1.3) 1.0 mg/dL (0.7-1.3) Estimated GFR (Cockcroft-Gault) 85.2 75.5 BUN/Creatinine Ratio 16 (6-20) Glucose Level 185 mg/dL (70-99) 152 mg/dL (70-99) Calcium Level 9.4 mg/dL (8.5-10.1) 8.4 mg/dL (8.5-10.1) Total Bilirubin 0.5 mg/dL (0.2-1.0) Aspartate Amino Transf (AST/SGOT) 24 U/L (15-37) Alanine Aminotransferase (ALT/SGPT) 23 U/L (16-63) Alkaline Phosphatase 68 U/L (46-116) Total Protein 8.5 g/dL (6.4-8.2) Albumin 3.8 g/dL (3.4-5.0) Albumin/Globulin Ratio 0.8 (1.0-1.7) Stool Occult Blood Positive (NEG) Laboratory Tests Test 04/09/18 15:48 04/09/18 22:15 04/10/18 04:05 Stool Occult Blood Positive (NEG) White Blood Count 22.1 x10^3/uL (4.0-11.0) 19.0 x10^3/uL (4.0-11.0) Red Blood Count 4.11 x10^6/uL (4.30-5.70) 4.03 x10^6/uL (4.30-5.70) Hemoglobin 13.3 g/dL (13.0-17.5) 13.2 g/dL (13.0-17.5) Hematocrit 39.1 % (39.0-53.0) 38.7 % (39.0-53.0) Mean Corpuscular Volume 95 fL (79-100) 96 fL (79-100) Mean Corpuscular Hemoglobin 32 pg (25-35) 33 pg (25-35) Mean Corpuscular Hemoglobin Concent 34 g/dL (31-37) 34 g/dL (31-37) Red Cell Distribution Width 12.8 % (11.5-14.5) 12.8 % (11.5-14.5) Platelet Count 262 x10^3/uL (140-400) 251 x10^3/uL (140-400) Neutrophils (%) (Auto) 79 % (31-73) Lymphocytes (%) (Auto) 12 % (24-48) Monocytes (%) (Auto) 8 % (0-9) Eosinophils (%) (Auto) 1 % (0-3) Basophils (%) (Auto) 0 % (0-3) Neutrophils # (Auto) 15.1 x10^3uL (1.8-7.7) Lymphocytes # (Auto) 2.4 x10^3/uL (1.0-4.8) Monocytes # (Auto) 1.5 x10^3/uL (0.0-1.1) Eosinophils # (Auto) 0.1 x10^3/uL (0.0-0.7) Basophils # (Auto) 0.1 x10^3/uL (0.0-0.2) Sodium Level 137 mmol/L (136-145) Potassium Level 3.4 mmol/L (3.5-5.1) Chloride Level 100 mmol/L (98-107) Carbon Dioxide Level 26 mmol/L (21-32) Anion Gap 11 (6-14) Blood Urea Nitrogen 16 mg/dL (8-26) Creatinine 1.0 mg/dL (0.7-1.3) Estimated GFR (Cockcroft-Gault) 75.5 Glucose Level 152 mg/dL (70-99) Calcium Level 8.4 mg/dL (8.5-10.1) Microbiology 04/10/18 Fecal Leukocyte Stain - Final, Complete Medications Current Medications Morphine Sulfate (Morphine Sulfate) 4 mg 1X ONCE IV Last administered on 2/24/ 19at 11:55; Start 04/09/18 at 11:45; Stop 04/09/18 at 11:46; Status DC Ondansetron HCl (Zofran) 4 mg 1X ONCE IV Last administered on 04/09/18 11:55 ; Start 04/09/18 at 11:45; Stop 04/09/18 at 11:46; Status DC Iohexol (Omnipaque 300 Mg/ml) 75 ml 1X ONCE IV Last administered on 04/09/18 13:06; Start 04/09/18 at 13:00; Stop 04/09/18 at 13:01; Status DC Ciprofloxacin/ Dextrose 200 ml @ 200 mls/hr 1X ONCE IV Last administered on 13:56; Start 04/09/18 at 13:45; Stop 04/09/18 at 14:44; Status DC Metronidazole 100 ml @ 100 mls/hr 1X ONCE IV Last administered on 04/09/18 16:21; Start 04/09/18 at 13:45; Stop 04/09/18 at 14:44; Status DC Ondansetron HCl (Zofran) 4 mg PRN Q8HRS PRN IV NAUSEA/VOMITING; Start 04/09/18 at 14:15; Stop 04/10/18 at 14:14 Morphine Sulfate (Morphine Sulfate) 2 mg PRN Q2HR PRN IV PAIN Last administered on 04/10/18 12:36; Start 04/09/18 at 14:15; Stop 04/10/18 at 14:14 Sodium Chloride 1,000 ml @ 100 mls/hr Q10H IV Last administered on 04/09/18 20:36; Start 04/09/18 at 14:15; Stop 04/10/18 at 14:14 Ciprofloxacin (Cipro) 500 mg BID PO Last administered on 04/10/18 08:11; Start 04/09/18 at 21:00 Metronidazole (Flagyl) 500 mg Q8HRS PO Last administered on 04/10/18 06:01; Start 04/09/18 at 22:00 Amlodipine Besylate (Norvasc) 5 mg BID PO Last administered on 04/10/18 08:11 ; Start 04/09/18 at 21:00 Tramadol HCl (Ultram) 50 mg TID PRN PO PAIN Last administered on 04/09/18 20: 30; Start 04/09/18 at 16:45 Baclofen (Lioresal) 10 mg TID PO ; Start 04/09/18 at 21:00; Stop 04/09/18 at 21: 00; Status DC Lisinopril (Prinivil) 20 mg BID PO Last administered on 04/10/18at 08:10; Start 04/09/18 at 21:00 Carvedilol (Coreg) 6.25 mg BIDWMEALS PO Last administered on 04/10/18 08:11; Start 04/09/18 at 17:00 Citalopram Hydrobromide (CeleXA) 20 mg QHS PO Last administered on 04/09/18 20 :27; Start 04/09/18 at 21:00 Pantoprazole Sodium (Protonix) 40 mg DAILYAC PO Last administered on 04/10/18at 08:10; Start 04/10/18 at 07:30 Simvastatin (Zocor) 20 mg HS PO Last administered on 04/09/18at 20:27; Start at 21:00 Tizanidine HCl (Zanaflex) 4 mg BID PO Last administered on 04/10/18 08:12; Start 04/09/18 at 21:00 Nicotine (Nicoderm Cq 14mg) 1 patch PRN DAILY PRN TD SMOKING CESSATION; Start 04/09/18 at 18:30 Active Scripts Active Reported Simvastatin 20 Mg Tablet 1 Tab PO QHS Escitalopram Oxalate 10 Mg Tablet 1 Tab PO HS Omeprazole 40 Mg Capsule.dr 1 Cap PO DAILY Tizanidine Hcl 4 Mg Tablet 1 Tab PO BID Baclofen 20 Mg Tablet 10 Mg PO TID Fosinopril Sodium 40 Mg Tablet 20 Mg PO BID Amlodipine Besylate 10 Mg Tablet 5 Mg PO BID Tramadol Hcl 50 Mg Tablet 50 Mg PO TID PRN Vitals/I & O Vital Sign - Last 24 Hours 04/09/18 04/09/18 04/09/18 04/09/18 15:55 16:28 16:58 17:49 Temp 97.6 97.6 Pulse 81 81 Resp 20 B/P (MAP) 180/84 (116) 180/84 Pulse Ox 98 O2 Delivery Room Air Room Air Room Air 04/09/18 04/09/18 04/09/18 04/09/18 19:00 20:05 20:28 20:29 Temp 98.7 98.7 Pulse 81 81 81 Resp 20 B/P (MAP) 174/77 (109) 174/74 174/77 Pulse Ox 98 O2 Delivery Room Air Room Air 04/09/18 04/09/18 04/09/18 04/09/18 20:30 20:31 21:40 23:00 Temp 98.6 98.6 Pulse 74 Resp 2 18 18 20 B/P (MAP) 117/60 (79) Pulse Ox 98 98 98 98 O2 Delivery Room Air Room Air Room Air Room Air 04/10/18 04/10/18 04/10/18 04/10/18 03:00 04:21 05:07 07:00 Temp 98.9 98.2 98.9 98.2 Pulse 75 67 Resp 20 18 18 B/P (MAP) 135/77 (96) 170/77 (108) Pulse Ox 99 99 99 94 O2 Delivery Room Air Room Air Room Air 04/10/18 04/10/18 04/10/18 04/10/18 08:00 08:10 08:11 08:11 Pulse 67 67 67 B/P (MAP) 170/77 170/77 170/77 O2 Delivery Room Air 04/10/18 04/10/18 04/10/18 04/10/18 08:12 10:48 12:36 13:02 Temp 98.0 98.0 Pulse 65 Resp 18 B/P (MAP) 86/54 (65) Pulse Ox 98 O2 Delivery Room Air Room Air Room Air Room Air Intake and Output 04/09/18 04/09/18 04/10/18 14:59 22:59 06:59 Intake Total 120 ml 1620 ml Output Total 2 ml Balance 120 ml 1618 ml ESTHER OLIVA MD Apr 10, 2018 13:26
[2018-04-10] MEDS: traMADol 50 MG TABLET PO PRN ×2 (14:48→20:48)
[2018-04-10] MEDS: IV NORMAL SALINE 1000ML BAG 1,000 ML IV SCH (14:48)
[2018-04-10 15:00] VITALS: BP 110/60
[2018-04-10] MEDS: VANCOMYCIN 125 MG/2.5 ML ORAL SOLUTION. PO SCH ×2 (17:13→20:49)
[2018-04-10] MEDS: POTASSIUM CHLORIDE 10MEQ 100 ML IV SCH ×2 (17:25→19:08)
[2018-04-10 19:00] VITALS: BP 132/68
[2018-04-10] MEDS: CITALOPRAM 20 MG TABLET. PO SCH (20:48)
[2018-04-10] MEDS: SIMVASTATIN 20 MG TABLET PO SCH (20:49)
--- NOTE | 2018-04-10 21:00 | NUR ---
MED ADMINISTRATION NOTE: Non-administered patient's 2100 lisinopril d/t patient stating he does not take it at bedtime at home, only once in the morning. Also non-administered patient's simvastatin d/t patient stating he does not take that either. Patient also stating he does not take amlodipine in the AM at home, only at bedtime. Will pass along to day RN.
[2018-04-10 23:00] VITALS: BP 139/73
[2018-04-11 03:00] VITALS: BP 136/74
[2018-04-11 05:05] LABS: BASO # 0.1 x10^3/uL (0.0-0.2); BASO % 1 % (0-3); EOS # 0.1 x10^3/uL (0.0-0.7); EOS % 0 % (0-3); HEMATOCRIT 35.7 % (39.0-53.0); HEMOGLOBIN 12.2 g/dL (13.0-17.5); LYMPH # 1.9 x10^3/uL (1.0-4.8); LYMPH % 15 % (24-48); MEAN CORPUSCULAR HEMOGLOBIN 33 pg (25-35); MEAN CORPUSCULAR HGB CONC 34 g/dL (31-37); MEAN CORPUSCULAR VOLUME 96 fL (79-100); MONO # 1.5 x10^3/uL (0.0-1.1); MONO % 12 % (0-9); NEUT # 9.5 x10^3uL (1.8-7.7); NEUT % 73 % (31-73); PLATELET COUNT 191 x10^3/uL (140-400); RED BLOOD COUNT 3.71 x10^6/uL (4.30-5.70); RED CELL DISTRIBUTION WIDTH 12.8 % (11.5-14.5); WHITE BLOOD COUNT 13.1 x10^3/uL (4.0-11.0)
[2018-04-11 05:23] LABS: ALBUMIN 2.7 g/dL (3.4-5.0); ALBUMIN/GLOBULIN RATIO 0.7 (1.0-1.7); CALCIUM 8.6 mg/dL (8.5-10.1); CREATININE 2.4 mg/dL (0.7-1.3); GFR 27.5; POTASSIUM 4.6 mmol/L (3.5-5.1); TOTAL BILIRUBIN 0.3 mg/dL (0.2-1.0); TOTAL PROTEIN 6.4 g/dL (6.4-8.2)
[2018-04-11 07:00] VITALS: BP 129/72
[2018-04-11] MEDS: PANTOPRAZOLE 40 MG TABLET.DR. PO SCH (08:51)
[2018-04-11] MEDS: tiZANidine 4 MG TABLET. PO SCH ×2 (08:51→21:37)
--- NOTE | 2018-04-11 08:51 | PDOC ---
PROGRESS NOTES History of Present Illness History of Present Illness Assessment/Plan Assessment/Plan Acute colitis pos fecal leukocytes bright red blood per rectum infectious colitis likely, cx, r/o others heavy alcohol use hx cont Cipro and flagyl GI consult admit 04/10 at risk for alcohol withdrawal 04/10 will use protocol per my personal review of ct images has severe colitis 04/11 had blood in stool today Hgb good, pt hypertensive, IV fluid if BP allows,. add BP meds tobacco use, education provided for cessation alcohol withdrawal precautions continue Vitals Vitals Vital Signs Date Time Temp Pulse Resp B/P (MAP) Pulse Ox O2 Delivery O2 Flow Rate FiO2 04/11/18 07:00 98.2 83 18 129/72 (91) 96 Room Air 98.2 Physical Exam General: Alert, Oriented X3, Cooperative, No acute distress, mild distress Heart: Regular rate, Normal S1 Lungs: Clear Abdomen: Normal bowel sounds, Soft (tender, no masses, normal sounds), No masses, Other (no guarding, no rebound, no peritoneal sign) Extremities: No clubbing, No cyanosis, No edema Skin: No rashes, No breakdown, No significant lesion Labs LABS Laboratory Tests Test 04/10/18 17:00 04/11/18 04:45 Lactic Acid Level 1.6 mmol/L (0.4-2.0) White Blood Count 13.1 x10^3/uL (4.0-11.0) Red Blood Count 3.71 x10^6/uL (4.30-5.70) Hemoglobin 12.2 g/dL (13.0-17.5) Hematocrit 35.7 % (39.0-53.0) Mean Corpuscular Volume 96 fL (79-100) Mean Corpuscular Hemoglobin 33 pg (25-35) Mean Corpuscular Hemoglobin Concent 34 g/dL (31-37) Red Cell Distribution Width 12.8 % (11.5-14.5) Platelet Count 191 x10^3/uL (140-400) Neutrophils (%) (Auto) 73 % (31-73) Lymphocytes (%) (Auto) 15 % (24-48) Monocytes (%) (Auto) 12 % (0-9) Eosinophils (%) (Auto) 0 % (0-3) Basophils (%) (Auto) 1 % (0-3) Neutrophils # (Auto) 9.5 x10^3uL (1.8-7.7) Lymphocytes # (Auto) 1.9 x10^3/uL (1.0-4.8) Monocytes # (Auto) 1.5 x10^3/uL (0.0-1.1) Eosinophils # (Auto) 0.1 x10^3/uL (0.0-0.7) Basophils # (Auto) 0.1 x10^3/uL (0.0-0.2) Sodium Level 140 mmol/L (136-145) Potassium Level 4.6 mmol/L (3.5-5.1) Chloride Level 106 mmol/L (98-107) Carbon Dioxide Level 25 mmol/L (21-32) Anion Gap 9 (6-14) Blood Urea Nitrogen 24 mg/dL (8-26) Creatinine 2.4 mg/dL (0.7-1.3) Estimated GFR (Cockcroft-Gault) 27.5 BUN/Creatinine Ratio 10 (6-20) Glucose Level 123 mg/dL (70-99) Calcium Level 8.6 mg/dL (8.5-10.1) Total Bilirubin 0.3 mg/dL (0.2-1.0) Aspartate Amino Transf (AST/SGOT) 24 U/L (15-37) Alanine Aminotransferase (ALT/SGPT) 14 U/L (16-63) Alkaline Phosphatase 43 U/L (46-116) Total Protein 6.4 g/dL (6.4-8.2) Albumin 2.7 g/dL (3.4-5.0) Albumin/Globulin Ratio 0.7 (1.0-1.7) Assessment and Plan Assessmemt and Plan Problems Medical Problems: (1) Acute hemorrhagic colitis Status: Acute Comment Review of Relevant I have reviewed the following items reena (where applicable) has been applied. Labs Laboratory Tests Test 04/09/18 11:39 04/09/18 15:48 04/09/18 22:15 04/10/18 04:05 White Blood Count 23.7 x10^3/uL (4.0-11.0) 22.1 x10^3/uL (4.0-11.0) 19.0 x10^3/uL (4.0-11.0) Red Blood Count 4.73 x10^6/uL (4.30-5.70) 4.11 x10^6/uL (4.30-5.70) 4.03 x10^6/uL (4.30-5.70) Hemoglobin 15.5 g/dL (13.0-17.5) 13.3 g/dL (13.0-17.5) 13.2 g/dL (13.0-17.5) Hematocrit 45.0 % (39.0-53.0) 39.1 % (39.0-53.0) 38.7 % (39.0-53.0) Mean Corpuscular Volume 95 fL (79-100) 95 fL (79-100) 96 fL (79-100) Mean Corpuscular Hemoglobin 33 pg (25-35) 32 pg (25-35) 33 pg (25-35) Mean Corpuscular Hemoglobin Concent 35 g/dL (31-37) 34 g/dL (31-37) 34 g/dL (31-37) Red Cell Distribution Width 12.8 % (11.5-14.5) 12.8 % (11.5-14.5) 12.8 % (11.5-14.5) Platelet Count 305 x10^3/uL (140-400) 262 x10^3/uL (140-400) 251 x10^3/uL (140-400) Neutrophils (%) (Auto) 86 % (31-73) 79 % (31-73) Lymphocytes (%) (Auto) 8 % (24-48) 12 % (24-48) Monocytes (%) (Auto) 6 % (0-9) 8 % (0-9) Eosinophils (%) (Auto) 0 % (0-3) 1 % (0-3) Basophils (%) (Auto) 0 % (0-3) 0 % (0-3) Neutrophils # (Auto) 20.4 x10^3uL (1.8-7.7) 15.1 x10^3uL (1.8-7.7) Lymphocytes # (Auto) 2.0 x10^3/uL (1.0-4.8) 2.4 x10^3/uL (1.0-4.8) Monocytes # (Auto) 1.3 x10^3/uL (0.0-1.1) 1.5 x10^3/uL (0.0-1.1) Eosinophils # (Auto) 0.0 x10^3/uL (0.0-0.7) 0.1 x10^3/uL (0.0-0.7) Basophils # (Auto) 0.1 x10^3/uL (0.0-0.2) 0.1 x10^3/uL (0.0-0.2) Segmented Neutrophils % 83 % (35-66) Band Neutrophils % 1 % (0-9) Lymphocytes % 7 % (24-48) Atypical Lymphocytes % (Manual) 1 % (0-0) Monocytes % 8 % (0-10) Platelet Estimate Adequate (ADEQUATE) Prothrombin Time 13.8 SEC (11.7-14.0) Prothromb Time International Ratio 1.1 (0.8-1.1) Activated Partial Thromboplast Time 28 SEC (24-38) Sodium Level 134 mmol/L (136-145) 137 mmol/L (136-145) Potassium Level 3.6 mmol/L (3.5-5.1) 3.4 mmol/L (3.5-5.1) Chloride Level 97 mmol/L (98-107) 100 mmol/L (98-107) Carbon Dioxide Level 23 mmol/L (21-32) 26 mmol/L (21-32) Anion Gap 14 (6-14) 11 (6-14) Blood Urea Nitrogen 14 mg/dL (8-26) 16 mg/dL (8-26) Creatinine 0.9 mg/dL (0.7-1.3) 1.0 mg/dL (0.7-1.3) Estimated GFR (Cockcroft-Gault) 85.2 75.5 BUN/Creatinine Ratio 16 (6-20) Glucose Level 185 mg/dL (70-99) 152 mg/dL (70-99) Calcium Level 9.4 mg/dL (8.5-10.1) 8.4 mg/dL (8.5-10.1) Total Bilirubin 0.5 mg/dL (0.2-1.0) Aspartate Amino Transf (AST/SGOT) 24 U/L (15-37) Alanine Aminotransferase (ALT/SGPT) 23 U/L (16-63) Alkaline Phosphatase 68 U/L (46-116) Total Protein 8.5 g/dL (6.4-8.2) Albumin 3.8 g/dL (3.4-5.0) Albumin/Globulin Ratio 0.8 (1.0-1.7) Stool Occult Blood Positive (NEG) Clostridium difficile Toxin B Gene Negative (Negative) Test 04/10/18 17:00 04/11/18 04:45 Lactic Acid Level 1.6 mmol/L (0.4-2.0) White Blood Count 13.1 x10^3/uL (4.0-11.0) Red Blood Count 3.71 x10^6/uL (4.30-5.70) Hemoglobin 12.2 g/dL (13.0-17.5) Hematocrit 35.7 % (39.0-53.0) Mean Corpuscular Volume 96 fL (79-100) Mean Corpuscular Hemoglobin 33 pg (25-35) Mean Corpuscular Hemoglobin Concent 34 g/dL (31-37) Red Cell Distribution Width 12.8 % (11.5-14.5) Platelet Count 191 x10^3/uL (140-400) Neutrophils (%) (Auto) 73 % (31-73) Lymphocytes (%) (Auto) 15 % (24-48) Monocytes (%) (Auto) 12 % (0-9) Eosinophils (%) (Auto) 0 % (0-3) Basophils (%) (Auto) 1 % (0-3) Neutrophils # (Auto) 9.5 x10^3uL (1.8-7.7) Lymphocytes # (Auto) 1.9 x10^3/uL (1.0-4.8) Monocytes # (Auto) 1.5 x10^3/uL (0.0-1.1) Eosinophils # (Auto) 0.1 x10^3/uL (0.0-0.7) Basophils # (Auto) 0.1 x10^3/uL (0.0-0.2) Sodium Level 140 mmol/L (136-145) Potassium Level 4.6 mmol/L (3.5-5.1) Chloride Level 106 mmol/L (98-107) Carbon Dioxide Level 25 mmol/L (21-32) Anion Gap 9 (6-14) Blood Urea Nitrogen 24 mg/dL (8-26) Creatinine 2.4 mg/dL (0.7-1.3) Estimated GFR (Cockcroft-Gault) 27.5 BUN/Creatinine Ratio 10 (6-20) Glucose Level 123 mg/dL (70-99) Calcium Level 8.6 mg/dL (8.5-10.1) Total Bilirubin 0.3 mg/dL (0.2-1.0) Aspartate Amino Transf (AST/SGOT) 24 U/L (15-37) Alanine Aminotransferase (ALT/SGPT) 14 U/L (16-63) Alkaline Phosphatase 43 U/L (46-116) Total Protein 6.4 g/dL (6.4-8.2) Albumin 2.7 g/dL (3.4-5.0) Albumin/Globulin Ratio 0.7 (1.0-1.7) Laboratory Tests Test 04/10/18 17:00 04/11/18 04:45 Lactic Acid Level 1.6 mmol/L (0.4-2.0) White Blood Count 13.1 x10^3/uL (4.0-11.0) Red Blood Count 3.71 x10^6/uL (4.30-5.70) Hemoglobin 12.2 g/dL (13.0-17.5) Hematocrit 35.7 % (39.0-53.0) Mean Corpuscular Volume 96 fL (79-100) Mean Corpuscular Hemoglobin 33 pg (25-35) Mean Corpuscular Hemoglobin Concent 34 g/dL (31-37) Red Cell Distribution Width 12.8 % (11.5-14.5) Platelet Count 191 x10^3/uL (140-400) Neutrophils (%) (Auto) 73 % (31-73) Lymphocytes (%) (Auto) 15 % (24-48) Monocytes (%) (Auto) 12 % (0-9) Eosinophils (%) (Auto) 0 % (0-3) Basophils (%) (Auto) 1 % (0-3) Neutrophils # (Auto) 9.5 x10^3uL (1.8-7.7) Lymphocytes # (Auto) 1.9 x10^3/uL (1.0-4.8) Monocytes # (Auto) 1.5 x10^3/uL (0.0-1.1) Eosinophils # (Auto) 0.1 x10^3/uL (0.0-0.7) Basophils # (Auto) 0.1 x10^3/uL (0.0-0.2) Sodium Level 140 mmol/L (136-145) Potassium Level 4.6 mmol/L (3.5-5.1) Chloride Level 106 mmol/L (98-107) Carbon Dioxide Level 25 mmol/L (21-32) Anion Gap 9 (6-14) Blood Urea Nitrogen 24 mg/dL (8-26) Creatinine 2.4 mg/dL (0.7-1.3) Estimated GFR (Cockcroft-Gault) 27.5 BUN/Creatinine Ratio 10 (6-20) Glucose Level 123 mg/dL (70-99) Calcium Level 8.6 mg/dL (8.5-10.1) Total Bilirubin 0.3 mg/dL (0.2-1.0) Aspartate Amino Transf (AST/SGOT) 24 U/L (15-37) Alanine Aminotransferase (ALT/SGPT) 14 U/L (16-63) Alkaline Phosphatase 43 U/L (46-116) Total Protein 6.4 g/dL (6.4-8.2) Albumin 2.7 g/dL (3.4-5.0) Albumin/Globulin Ratio 0.7 (1.0-1.7) Microbiology 04/10/18 Fecal Leukocyte Stain - Final, Complete Medications Current Medications Morphine Sulfate (Morphine Sulfate) 4 mg 1X ONCE IV Last administered on at 11:55; Start 04/09/18 at 11:45; Stop 04/09/18 at 11:46; Status DC Ondansetron HCl (Zofran) 4 mg 1X ONCE IV Last administered on 04/09/18at 11:55 ; Start 04/09/18 at 11:45; Stop 04/09/18 at 11:46; Status DC Iohexol (Omnipaque 300 Mg/ml) 75 ml 1X ONCE IV Last administered on 04/09/18at 13:06; Start 04/09/18 at 13:00; Stop 04/09/18 at 13:01; Status DC Ciprofloxacin/ Dextrose 200 ml @ 200 mls/hr 1X ONCE IV Last administered on 13:56; Start 04/09/18 at 13:45; Stop 04/09/18 at 14:44; Status DC Metronidazole 100 ml @ 100 mls/hr 1X ONCE IV Last administered on 04/09/18 16:21; Start 04/09/18 at 13:45; Stop 04/09/18 at 14:44; Status DC Ondansetron HCl (Zofran) 4 mg PRN Q8HRS PRN IV NAUSEA/VOMITING; Start 04/09/18 at 14:15; Stop 04/10/18 at 14:14; Status DC Morphine Sulfate (Morphine Sulfate) 2 mg PRN Q2HR PRN IV PAIN Last administered on 04/10/18 12:36; Start 04/09/18 at 14:15; Stop 04/10/18 at 14:14 ; Status DC Sodium Chloride 1,000 ml @ 100 mls/hr Q10H IV Last administered on 04/10/18 14:48; Start 04/09/18 at 14:15; Stop 04/10/18 at 14:14; Status DC Ciprofloxacin (Cipro) 500 mg BID PO Last administered on 04/10/18 08:11; Start 04/09/18 at 21:00; Stop 04/10/18 at 14:36; Status DC Metronidazole (Flagyl) 500 mg Q8HRS PO Last administered on 04/10/18 06:01; Start 04/09/18 at 22:00; Stop 04/10/18 at 14:36; Status DC Amlodipine Besylate (Norvasc) 5 mg BID PO Last administered on 04/10/18 20:48 ; Start 04/09/18 at 21:00 Tramadol HCl (Ultram) 50 mg TID PRN PO PAIN Last administered on 04/10/18 14: 48; Start 04/09/18 at 16:45; Stop 04/10/18 at 19:54; Status DC Baclofen (Lioresal) 10 mg TID PO ; Start 04/09/18 at 21:00; Stop 04/09/18 at 21: 00; Status DC Lisinopril (Prinivil) 20 mg BID PO Last administered on 04/10/18at 08:10; Start 04/09/18 at 21:00 Carvedilol (Coreg) 6.25 mg BIDWMEALS PO Last administered on 04/10/18 17:24; Start 04/09/18 at 17:00 Citalopram Hydrobromide (CeleXA) 20 mg QHS PO Last administered on 04/10/18 20 :48; Start 04/09/18 at 21:00 Pantoprazole Sodium (Protonix) 40 mg DAILYAC PO Last administered on 04/10/18 08:10; Start 04/10/18 at 07:30 Simvastatin (Zocor) 20 mg HS PO Last administered on 04/09/18 20:27; Start at 21:00 Tizanidine HCl (Zanaflex) 4 mg BID PO Last administered on 04/10/18 20:49; Start 04/09/18 at 21:00 Nicotine (Nicoderm Cq 14mg) 1 patch PRN DAILY PRN TD SMOKING CESSATION; Start 04/09/18 at 18:30 Vancomycin HCl (Vancomycin Oral Solution) 125 mg [id number] PO Last administered on 04/10/18 20:49; Start 04/10/18 at 17:00 Potassium Chloride/Water 100 ml @ 100 mls/hr Q1H IV Last administered on 19:08; Start 04/10/18 at 17:00; Stop 04/10/18 at 18:59; Status DC Tramadol HCl (Ultram) 50 mg PRN DAILY PRN PO PAIN; Start 04/10/18 at 20:00 Tramadol HCl (Ultram) 100 mg PRN QHS PRN PO PAIN Last administered on 20:48; Start 04/10/18 at 20:00 Morphine Sulfate (Morphine Sulfate) 2 mg PRN Q2HR PRN IV PAIN; Start 04/10/18 at 20:00 Active Scripts Active Reported Aspir-Low (Aspirin) 81 Mg Tablet.dr 1 Tab PO HS Escitalopram Oxalate 10 Mg Tablet 1 Tab PO HS Omeprazole 40 Mg Capsule.dr 1 Cap PO DAILY Tizanidine Hcl 4 Mg Tablet 1 Tab PO BID Baclofen 20 Mg Tablet 10 Mg PO TID Fosinopril Sodium 40 Mg Tablet 20 Mg PO DAILY Amlodipine Besylate 10 Mg Tablet 5 Mg PO QHS Tramadol Hcl 50 Mg Tablet 50 Mg PO TID PRN Vitals/I & O Vital Sign - Last 24 Hours 04/10/18 04/10/18 04/10/18 04/10/18 10:48 12:36 13:02 14:48 Temp 98.0 98.0 Pulse 65 Resp 18 B/P (MAP) 86/54 (65) Pulse Ox 98 O2 Delivery Room Air Room Air Room Air Room Air 04/10/18 04/10/18 04/10/18 04/10/18 15:00 15:48 17:24 19:00 Temp 98.0 97.8 98.0 97.8 Pulse 65 65 78 Resp 18 18 B/P (MAP) 110/60 (77) 110/60 132/68 (89) Pulse Ox 98 98 O2 Delivery Room Air Room Air Room Air 04/10/18 04/10/18 04/10/18 04/10/18 20:00 20:48 20:48 22:00 Pulse 78 Resp 17 16 B/P (MAP) 132/68 Pulse Ox 98 98 O2 Delivery Room Air Room Air Room Air 04/10/18 04/11/18 04/11/18 23:00 03:00 07:00 Temp 98.7 98.7 98.2 98.7 98.7 98.2 Pulse 76 69 83 Resp 18 18 18 B/P (MAP) 139/73 (95) 136/74 (94) 129/72 (91) Pulse Ox 98 98 96 O2 Delivery Room Air Room Air Room Air Intake and Output 04/10/18 04/10/18 04/11/18 15:00 23:00 07:00 Intake Total 100 ml 1450 ml Balance 100 ml 1450 ml ESTHER OLIVA MD Apr 11, 2018 08:51
[2018-04-11] MEDS: CARVEDILOL 6.25 MG TABLET. PO SCH ×2 (08:52→17:06)
[2018-04-11] MEDS: LISINOPRIL 20 MG TABLET PO SCH ×2 (08:52→21:00)
[2018-04-11] MEDS: amLODIPine BESYLATE 5 MG TABLET PO SCH ×2 (08:52→21:38)
[2018-04-11] MEDS: VANCOMYCIN 125 MG/2.5 ML ORAL SOLUTION. PO SCH ×4 (08:54→21:38)
[2018-04-11] MEDS: traMADol 50 MG TABLET PO PRN ×2 (08:56→21:41)
[2018-04-11 11:00] VITALS: BP 137/69
--- NOTE | 2018-04-11 14:43 | PDOC ---
Infectious Disease Note Vital Sign Vital Signs Vital Signs Date Time Temp Pulse Resp B/P (MAP) Pulse Ox O2 Delivery O2 Flow Rate FiO2 04/11/18 11:00 98.0 70 18 137/69 (91) 98 Room Air 98.0 Labs Lab Laboratory Tests Test 04/10/18 17:00 04/11/18 04:45 Lactic Acid Level 1.6 mmol/L (0.4-2.0) White Blood Count 13.1 x10^3/uL (4.0-11.0) Red Blood Count 3.71 x10^6/uL (4.30-5.70) Hemoglobin 12.2 g/dL (13.0-17.5) Hematocrit 35.7 % (39.0-53.0) Mean Corpuscular Volume 96 fL (79-100) Mean Corpuscular Hemoglobin 33 pg (25-35) Mean Corpuscular Hemoglobin Concent 34 g/dL (31-37) Red Cell Distribution Width 12.8 % (11.5-14.5) Platelet Count 191 x10^3/uL (140-400) Neutrophils (%) (Auto) 73 % (31-73) Lymphocytes (%) (Auto) 15 % (24-48) Monocytes (%) (Auto) 12 % (0-9) Eosinophils (%) (Auto) 0 % (0-3) Basophils (%) (Auto) 1 % (0-3) Neutrophils # (Auto) 9.5 x10^3uL (1.8-7.7) Lymphocytes # (Auto) 1.9 x10^3/uL (1.0-4.8) Monocytes # (Auto) 1.5 x10^3/uL (0.0-1.1) Eosinophils # (Auto) 0.1 x10^3/uL (0.0-0.7) Basophils # (Auto) 0.1 x10^3/uL (0.0-0.2) Sodium Level 140 mmol/L (136-145) Potassium Level 4.6 mmol/L (3.5-5.1) Chloride Level 106 mmol/L (98-107) Carbon Dioxide Level 25 mmol/L (21-32) Anion Gap 9 (6-14) Blood Urea Nitrogen 24 mg/dL (8-26) Creatinine 2.4 mg/dL (0.7-1.3) Estimated GFR (Cockcroft-Gault) 27.5 BUN/Creatinine Ratio 10 (6-20) Glucose Level 123 mg/dL (70-99) Calcium Level 8.6 mg/dL (8.5-10.1) Total Bilirubin 0.3 mg/dL (0.2-1.0) Aspartate Amino Transf (AST/SGOT) 24 U/L (15-37) Alanine Aminotransferase (ALT/SGPT) 14 U/L (16-63) Alkaline Phosphatase 43 U/L (46-116) Total Protein 6.4 g/dL (6.4-8.2) Albumin 2.7 g/dL (3.4-5.0) Albumin/Globulin Ratio 0.7 (1.0-1.7) Micro Microbiology 04/10/18 Fecal Leukocyte Stain - Final, Complete Objective Assessment Extensive colitis, d/d ischemic, c diff, infectious, inflammatory Leukocytosis GI bleed Plan Plan of Care po vanc recheck c diff, to rule out lab error need stool culture supportive care d/w CHUY Lassiter MD Apr 11, 2018 14:43
--- NOTE | 2018-04-11 14:56 | PDOC ---
Subjective: Subjective: Abdomen is sore - says they took away his pain meds. Ongoing diarrhea but bleeding is resolving. Tolerating clears. Objective: Vital Signs: Vital Signs Date Time Temp Pulse Resp B/P (MAP) Pulse Ox O2 Delivery O2 Flow Rate FiO2 04/11/18 11:00 98.0 70 18 137/69 (91) 98 Room Air 98.0 Labs: Laboratory Tests Test 04/10/18 17:00 04/11/18 04:45 Lactic Acid Level 1.6 mmol/L White Blood Count 13.1 x10^3/uL Red Blood Count 3.71 x10^6/uL Hemoglobin 12.2 g/dL Hematocrit 35.7 % Mean Corpuscular Volume 96 fL Mean Corpuscular Hemoglobin 33 pg Mean Corpuscular Hemoglobin Concent 34 g/dL Red Cell Distribution Width 12.8 % Platelet Count 191 x10^3/uL Neutrophils (%) (Auto) 73 % Lymphocytes (%) (Auto) 15 % Monocytes (%) (Auto) 12 % Eosinophils (%) (Auto) 0 % Basophils (%) (Auto) 1 % Neutrophils # (Auto) 9.5 x10^3uL Lymphocytes # (Auto) 1.9 x10^3/uL Monocytes # (Auto) 1.5 x10^3/uL Eosinophils # (Auto) 0.1 x10^3/uL Basophils # (Auto) 0.1 x10^3/uL Sodium Level 140 mmol/L Potassium Level 4.6 mmol/L Chloride Level 106 mmol/L Carbon Dioxide Level 25 mmol/L Anion Gap 9 Blood Urea Nitrogen 24 mg/dL Creatinine 2.4 mg/dL Estimated GFR (Cockcroft-Gault) 27.5 BUN/Creatinine Ratio 10 Glucose Level 123 mg/dL Calcium Level 8.6 mg/dL Total Bilirubin 0.3 mg/dL Aspartate Amino Transf (AST/SGOT) 24 U/L Alanine Aminotransferase (ALT/SGPT) 14 U/L Alkaline Phosphatase 43 U/L Total Protein 6.4 g/dL Albumin 2.7 g/dL Albumin/Globulin Ratio 0.7 PE: GEN: NAD LUNGS: CTAB HEART: RRR ABD: NABS, soft, tender NEURO/PSYCH: A & O 3 A/P: Abd pain and diarrhea, colitis Leukocytosis (better), DERRICK -- Keep to clears, check KUB. Continue vanco - ID now following, plans to recheck Shashi Lopes. NORA STAPLES Apr 11, 2018 14:56
[2018-04-11 15:00] VITALS: BP 132/65
[2018-04-11] MEDS: MORPHINE SULFATE 4 MG/ML VIAL. IV PRN (15:12)
--- NOTE | 2018-04-11 15:57 | RAD ---
EXAM: Abdomen, single view. HISTORY: Pain. COMPARISON: CT dated 04/09/2018. FINDINGS: A frontal view of the abdomen is obtained. There are distended air-filled small and large bowel throughout the abdomen. There is distal colonic wall thickening. There is no transition point. IMPRESSION: 1. Distal colonic wall thickening, better characterized on the recent CT and consistent with acute colitis. 2. Nonspecific air-filled loops of bowel throughout the abdomen. There is no clear transition point to suggest obstruction. Electronically signed by: Shauna Powell MD (04/11/2018 3:54 PM) [place] [id number]
[2018-04-11 18:57] VITALS: BP 151/56
[2018-04-11] MEDS: SIMVASTATIN 20 MG TABLET PO SCH (21:37)
[2018-04-11] MEDS: CITALOPRAM 20 MG TABLET. PO SCH (21:37)
[2018-04-11 23:00] VITALS: BP 139/75
--- NOTE | 2018-04-12 01:37 | CONS ---
DATE OF CONSULTATION: 04/11/2018 REQUESTING PHYSICIAN: Dr. Dejesus REASON FOR CONSULTATION: Extensive colitis. HISTORY OF PRESENT ILLNESS: This is a 62-year-old gentleman who came in with a 1-week history of abdominal pain. It started, he says, as epigastric pain. It got worse. The patient was seen by primary care, was put on, he thinks, it was antibiotics and then it continued to get worse. He started having diarrhea and chantal blood started coming out. Hence, he came in. The patient's CT showed extensive colitis from the distal transverse colon through the descending and proximal sigmoid colon. The patient has not had any fever. The patient's white count was high at 23,000, it is coming down. P.o. vancomycin was started, but C. diff testing is negative with the PCR. The patient's bleeding has improved, but still having abdominal pain and now the creatinine has bumped to 2.4 from normal. PAST MEDICAL HISTORY: Positive for hypertension. SOCIAL HISTORY: Positive for smoking. Rare alcohol use, no drug use. ALLERGIES: LISTED ALLERGIC TO PENICILLIN. CURRENT MEDICATIONS: Reviewed. REVIEW OF SYSTEMS: As per HPI, all other systems reviewed are negative. PHYSICAL EXAMINATION: GENERAL: Alert, oriented gentleman, not in distress. VITAL SIGNS: Stable, afebrile. HEENT: NAD. NECK: Supple, no JVP, no lymphadenopathy. LUNGS: Clear. HEART: S1, S2 regular. ABDOMEN: Mildly diffusely tender, no rebound or guarding. No organomegaly. EXTREMITIES: No edema or cyanosis. SKIN: Unremarkable. NEUROLOGIC: The patient is neurologically intact. The patient does not look very sick. LABORATORY DATA: White count is 13,000. BUN and creatinine are 24 and 2.4. C. diff PCR is negative. Fecal leukocyte stain is evidently absence of normal fecal ross and I do not know what that means. CT of the abdomen and pelvis is as I mentioned in HPI. IMPRESSION: 1. Colitis, left-sided, most likely ischemic colitis. Other possibilities of Clostridium difficile are possible with having a laboratory error, although PCR is quite accurate, probably less likely. 2. It can be also Shiga toxin producing infectious colitis. Again, the patient does not look that sick. 3. Hypertension. 4. Tobaccoism. 5. Acute kidney injury, probably secondary to dehydration. RECOMMENDATIONS: We would continue with p.o. vancomycin until we have a repeat C. diff negative. Also, hydration. Stool culture for Shiga toxin producing E. coli or Enterobacteriaceae. Supportive care and we will continue to follow. Thank you very much, Dr. Dejesus, for giving me the opportunity to participate in this patient's care. Discussion with Dr. Quiroz done. CHUY ENRIQUEZ MD DR: LIVAN/andre JOB#: [id number] / [id number]
[2018-04-12] MEDS: MORPHINE SULFATE 4 MG/ML VIAL. IV PRN ×2 (03:51→16:34)
[2018-04-12 06:49] LABS: BASO % 1 % (0-3); EOS # 0.1 x10^3/uL (0.0-0.7); EOS % 1 % (0-3); HEMATOCRIT 35.1 % (39.0-53.0); HEMOGLOBIN 12.1 g/dL (13.0-17.5); LYMPH # 1.9 x10^3/uL (1.0-4.8); LYMPH % 19 % (24-48); MEAN CORPUSCULAR HEMOGLOBIN 33 pg (25-35); MEAN CORPUSCULAR HGB CONC 34 g/dL (31-37); MEAN CORPUSCULAR VOLUME 95 fL (79-100); MONO # 1.1 x10^3/uL (0.0-1.1); MONO % 10 % (0-9); NEUT # 7.1 x10^3uL (1.8-7.7); NEUT % 69 % (31-73); PLATELET COUNT 201 x10^3/uL (140-400); RED BLOOD COUNT 3.69 x10^6/uL (4.30-5.70); RED CELL DISTRIBUTION WIDTH 12.6 % (11.5-14.5); WHITE BLOOD COUNT 10.3 x10^3/uL (4.0-11.0)
[2018-04-12 06:52] VITALS: BP 147/71
[2018-04-12 07:16] LABS: CALCIUM 8.8 mg/dL (8.5-10.1); CREATININE 1.8 mg/dL (0.7-1.3); GFR 38.3
[2018-04-12] MEDS: LISINOPRIL 20 MG TABLET PO SCH ×2 (08:15→20:27)
[2018-04-12] MEDS: PANTOPRAZOLE 40 MG TABLET.DR. PO SCH (08:15)
[2018-04-12] MEDS: VANCOMYCIN 125 MG/2.5 ML ORAL SOLUTION. PO SCH ×2 (08:15→12:35)
[2018-04-12] MEDS: CARVEDILOL 6.25 MG TABLET. PO SCH ×2 (08:15→16:33)
[2018-04-12] MEDS: tiZANidine 4 MG TABLET. PO SCH ×2 (08:15→20:28)
[2018-04-12] MEDS: amLODIPine BESYLATE 5 MG TABLET PO SCH ×2 (08:15→20:28)
[2018-04-12] MEDS: traMADol 50 MG TABLET PO PRN ×2 (08:16→20:29)
--- NOTE | 2018-04-12 09:19 | PDOC ---
PROGRESS NOTES History of Present Illness History of Present Illness Assessment/Plan Assessment/Plan Acute colitis pos fecal leukocytes bright red blood per rectum infectious colitis likely, cx, r/o others heavy alcohol use hx cont Cipro and flagyl GI consult admit 04/10 at risk for alcohol withdrawal 04/10 will use protocol per my personal review of ct images has severe colitis 04/11 had blood in stool today 04/12 PAIN WORSE TODAY, Slow to improve d/c vanc per id Hgb good, pt hypertensive, IV fluid if BP allows,. add BP meds tobacco use, education provided for cessation alcohol withdrawal precautions continue Vitals Vitals Vital Signs Date Time Temp Pulse Resp B/P (MAP) Pulse Ox O2 Delivery O2 Flow Rate FiO2 04/12/18 08:16 Room Air 04/12/18 08:15 68 147/71 04/12/18 06:52 98.6 18 95 98.6 Physical Exam General: Alert, Oriented X3, Cooperative, No acute distress, mild distress Heart: Regular rate, Normal S1 Lungs: Clear Abdomen: Normal bowel sounds, Soft (tender, no masses, normal sounds), No masses, Other (no guarding, no rebound, no peritoneal sign) Extremities: No clubbing, No cyanosis, No edema Skin: No rashes, No breakdown, No significant lesion Labs LABS Laboratory Tests Test 04/12/18 06:00 White Blood Count 10.3 x10^3/uL (4.0-11.0) Red Blood Count 3.69 x10^6/uL (4.30-5.70) Hemoglobin 12.1 g/dL (13.0-17.5) Hematocrit 35.1 % (39.0-53.0) Mean Corpuscular Volume 95 fL (79-100) Mean Corpuscular Hemoglobin 33 pg (25-35) Mean Corpuscular Hemoglobin Concent 34 g/dL (31-37) Red Cell Distribution Width 12.6 % (11.5-14.5) Platelet Count 201 x10^3/uL (140-400) Neutrophils (%) (Auto) 69 % (31-73) Lymphocytes (%) (Auto) 19 % (24-48) Monocytes (%) (Auto) 10 % (0-9) Eosinophils (%) (Auto) 1 % (0-3) Basophils (%) (Auto) 1 % (0-3) Neutrophils # (Auto) 7.1 x10^3uL (1.8-7.7) Lymphocytes # (Auto) 1.9 x10^3/uL (1.0-4.8) Monocytes # (Auto) 1.1 x10^3/uL (0.0-1.1) Eosinophils # (Auto) 0.1 x10^3/uL (0.0-0.7) Basophils # (Auto) 0.0 x10^3/uL (0.0-0.2) Sodium Level 136 mmol/L (136-145) Potassium Level 3.0 mmol/L (3.5-5.1) Chloride Level 100 mmol/L (98-107) Carbon Dioxide Level 26 mmol/L (21-32) Anion Gap 10 (6-14) Blood Urea Nitrogen 23 mg/dL (8-26) Creatinine 1.8 mg/dL (0.7-1.3) Estimated GFR (Cockcroft-Gault) 38.3 Glucose Level 108 mg/dL (70-99) Calcium Level 8.8 mg/dL (8.5-10.1) Assessment and Plan Assessmemt and Plan Problems Medical Problems: (1) Acute hemorrhagic colitis Status: Acute Comment Review of Relevant I have reviewed the following items reena (where applicable) has been applied. Labs Laboratory Tests Test 04/10/18 17:00 04/11/18 04:45 04/12/18 06:00 Lactic Acid Level 1.6 mmol/L (0.4-2.0) White Blood Count 13.1 x10^3/uL (4.0-11.0) 10.3 x10^3/uL (4.0-11.0) Red Blood Count 3.71 x10^6/uL (4.30-5.70) 3.69 x10^6/uL (4.30-5.70) Hemoglobin 12.2 g/dL (13.0-17.5) 12.1 g/dL (13.0-17.5) Hematocrit 35.7 % (39.0-53.0) 35.1 % (39.0-53.0) Mean Corpuscular Volume 96 fL (79-100) 95 fL (79-100) Mean Corpuscular Hemoglobin 33 pg (25-35) 33 pg (25-35) Mean Corpuscular Hemoglobin Concent 34 g/dL (31-37) 34 g/dL (31-37) Red Cell Distribution Width 12.8 % (11.5-14.5) 12.6 % (11.5-14.5) Platelet Count 191 x10^3/uL (140-400) 201 x10^3/uL (140-400) Neutrophils (%) (Auto) 73 % (31-73) 69 % (31-73) Lymphocytes (%) (Auto) 15 % (24-48) 19 % (24-48) Monocytes (%) (Auto) 12 % (0-9) 10 % (0-9) Eosinophils (%) (Auto) 0 % (0-3) 1 % (0-3) Basophils (%) (Auto) 1 % (0-3) 1 % (0-3) Neutrophils # (Auto) 9.5 x10^3uL (1.8-7.7) 7.1 x10^3uL (1.8-7.7) Lymphocytes # (Auto) 1.9 x10^3/uL (1.0-4.8) 1.9 x10^3/uL (1.0-4.8) Monocytes # (Auto) 1.5 x10^3/uL (0.0-1.1) 1.1 x10^3/uL (0.0-1.1) Eosinophils # (Auto) 0.1 x10^3/uL (0.0-0.7) 0.1 x10^3/uL (0.0-0.7) Basophils # (Auto) 0.1 x10^3/uL (0.0-0.2) 0.0 x10^3/uL (0.0-0.2) Sodium Level 140 mmol/L (136-145) 136 mmol/L (136-145) Potassium Level 4.6 mmol/L (3.5-5.1) 3.0 mmol/L (3.5-5.1) Chloride Level 106 mmol/L (98-107) 100 mmol/L (98-107) Carbon Dioxide Level 25 mmol/L (21-32) 26 mmol/L (21-32) Anion Gap 9 (6-14) 10 (6-14) Blood Urea Nitrogen 24 mg/dL (8-26) 23 mg/dL (8-26) Creatinine 2.4 mg/dL (0.7-1.3) 1.8 mg/dL (0.7-1.3) Estimated GFR (Cockcroft-Gault) 27.5 38.3 BUN/Creatinine Ratio 10 (6-20) Glucose Level 123 mg/dL (70-99) 108 mg/dL (70-99) Calcium Level 8.6 mg/dL (8.5-10.1) 8.8 mg/dL (8.5-10.1) Total Bilirubin 0.3 mg/dL (0.2-1.0) Aspartate Amino Transf (AST/SGOT) 24 U/L (15-37) Alanine Aminotransferase (ALT/SGPT) 14 U/L (16-63) Alkaline Phosphatase 43 U/L (46-116) Total Protein 6.4 g/dL (6.4-8.2) Albumin 2.7 g/dL (3.4-5.0) Albumin/Globulin Ratio 0.7 (1.0-1.7) Laboratory Tests Test 04/12/18 06:00 White Blood Count 10.3 x10^3/uL (4.0-11.0) Red Blood Count 3.69 x10^6/uL (4.30-5.70) Hemoglobin 12.1 g/dL (13.0-17.5) Hematocrit 35.1 % (39.0-53.0) Mean Corpuscular Volume 95 fL (79-100) Mean Corpuscular Hemoglobin 33 pg (25-35) Mean Corpuscular Hemoglobin Concent 34 g/dL (31-37) Red Cell Distribution Width 12.6 % (11.5-14.5) Platelet Count 201 x10^3/uL (140-400) Neutrophils (%) (Auto) 69 % (31-73) Lymphocytes (%) (Auto) 19 % (24-48) Monocytes (%) (Auto) 10 % (0-9) Eosinophils (%) (Auto) 1 % (0-3) Basophils (%) (Auto) 1 % (0-3) Neutrophils # (Auto) 7.1 x10^3uL (1.8-7.7) Lymphocytes # (Auto) 1.9 x10^3/uL (1.0-4.8) Monocytes # (Auto) 1.1 x10^3/uL (0.0-1.1) Eosinophils # (Auto) 0.1 x10^3/uL (0.0-0.7) Basophils # (Auto) 0.0 x10^3/uL (0.0-0.2) Sodium Level 136 mmol/L (136-145) Potassium Level 3.0 mmol/L (3.5-5.1) Chloride Level 100 mmol/L (98-107) Carbon Dioxide Level 26 mmol/L (21-32) Anion Gap 10 (6-14) Blood Urea Nitrogen 23 mg/dL (8-26) Creatinine 1.8 mg/dL (0.7-1.3) Estimated GFR (Cockcroft-Gault) 38.3 Glucose Level 108 mg/dL (70-99) Calcium Level 8.8 mg/dL (8.5-10.1) Microbiology 04/10/18 Fecal Leukocyte Stain - Final, Complete Medications Current Medications Morphine Sulfate (Morphine Sulfate) 4 mg 1X ONCE IV Last administered on at 11:55; Start 04/09/18 at 11:45; Stop 04/09/18 at 11:46; Status DC Ondansetron HCl (Zofran) 4 mg 1X ONCE IV Last administered on 04/09/18at 11:55 ; Start 04/09/18 at 11:45; Stop 04/09/18 at 11:46; Status DC Iohexol (Omnipaque 300 Mg/ml) 75 ml 1X ONCE IV Last administered on 04/09/18at 13:06; Start 04/09/18 at 13:00; Stop 04/09/18 at 13:01; Status DC Ciprofloxacin/ Dextrose 200 ml @ 200 mls/hr 1X ONCE IV Last administered on 13:56; Start 04/09/18 at 13:45; Stop 04/09/18 at 14:44; Status DC Metronidazole 100 ml @ 100 mls/hr 1X ONCE IV Last administered on 04/09/18at 16:21; Start 04/09/18 at 13:45; Stop 04/09/18 at 14:44; Status DC Ondansetron HCl (Zofran) 4 mg PRN Q8HRS PRN IV NAUSEA/VOMITING; Start 04/09/18 at 14:15; Stop 04/10/18 at 14:14; Status DC Morphine Sulfate (Morphine Sulfate) 2 mg PRN Q2HR PRN IV PAIN Last administered on 04/10/18 12:36; Start 04/09/18 at 14:15; Stop 04/10/18 at 14:14 ; Status DC Sodium Chloride 1,000 ml @ 100 mls/hr Q10H IV Last administered on 04/10/18 14:48; Start 04/09/18 at 14:15; Stop 04/10/18 at 14:14; Status DC Ciprofloxacin (Cipro) 500 mg BID PO Last administered on 04/10/18 08:11; Start 04/09/18 at 21:00; Stop 04/10/18 at 14:36; Status DC Metronidazole (Flagyl) 500 mg Q8HRS PO Last administered on 04/10/18 06:01; Start 04/09/18 at 22:00; Stop 04/10/18 at 14:36; Status DC Amlodipine Besylate (Norvasc) 5 mg BID PO Last administered on 04/12/18 08:15 ; Start 04/09/18 at 21:00 Tramadol HCl (Ultram) 50 mg TID PRN PO PAIN Last administered on 04/10/18 14: 48; Start 04/09/18 at 16:45; Stop 04/10/18 at 19:54; Status DC Baclofen (Lioresal) 10 mg TID PO ; Start 04/09/18 at 21:00; Stop 04/09/18 at 21: 00; Status DC Lisinopril (Prinivil) 20 mg BID PO Last administered on 04/12/18 08:15; Start 04/09/18 at 21:00 Carvedilol (Coreg) 6.25 mg BIDWMEALS PO Last administered on 04/12/18 08:15; Start 04/09/18 at 17:00 Citalopram Hydrobromide (CeleXA) 20 mg QHS PO Last administered on 04/11/18 21 :37; Start 04/09/18 at 21:00 Pantoprazole Sodium (Protonix) 40 mg DAILYAC PO Last administered on 04/12/18 08:15; Start 04/10/18 at 07:30 Simvastatin (Zocor) 20 mg HS PO Last administered on 04/11/18 21:37; Start at 21:00 Tizanidine HCl (Zanaflex) 4 mg BID PO Last administered on 04/12/18 08:15; Start 04/09/18 at 21:00 Nicotine (Nicoderm Cq 14mg) 1 patch PRN DAILY PRN TD SMOKING CESSATION; Start 04/09/18 at 18:30 Vancomycin HCl (Vancomycin Oral Solution) 125 mg [id number] PO Last administered on 04/12/18 08:15; Start 04/10/18 at 17:00 Potassium Chloride/Water 100 ml @ 100 mls/hr Q1H IV Last administered on 19:08; Start 04/10/18 at 17:00; Stop 04/10/18 at 18:59; Status DC Tramadol HCl (Ultram) 50 mg PRN DAILY PRN PO PAIN Last administered on 08:16; Start 04/10/18 at 20:00 Tramadol HCl (Ultram) 100 mg PRN QHS PRN PO PAIN Last administered on 21:41; Start 04/10/18 at 20:00 Morphine Sulfate (Morphine Sulfate) 2 mg PRN Q2HR PRN IV PAIN Last administered on 04/12/18 03:51; Start 04/10/18 at 20:00 Active Scripts Active Reported Aspir-Low (Aspirin) 81 Mg Tablet.dr 1 Tab PO HS Escitalopram Oxalate 10 Mg Tablet 1 Tab PO HS Omeprazole 40 Mg Capsule.dr 1 Cap PO DAILY Tizanidine Hcl 4 Mg Tablet 1 Tab PO BID Baclofen 20 Mg Tablet 10 Mg PO TID Fosinopril Sodium 40 Mg Tablet 20 Mg PO DAILY Amlodipine Besylate 10 Mg Tablet 5 Mg PO QHS Tramadol Hcl 50 Mg Tablet 50 Mg PO TID PRN Vitals/I & O Vital Sign - Last 24 Hours 04/11/18 04/11/18 04/11/18 04/11/18 09:56 11:00 15:00 15:12 Temp 98.0 98.0 98.0 98.0 Pulse 70 74 Resp 18 18 B/P (MAP) 137/69 (91) 132/65 (87) Pulse Ox 98 98 99 98 O2 Delivery Room Air Room Air Room Air Room Air 04/11/18 04/11/18 04/11/18 04/11/18 15:42 17:06 18:57 20:00 Temp 98.0 98.0 Pulse 74 66 Resp 18 B/P (MAP) 132/65 151/56 (87) Pulse Ox 98 98 O2 Delivery Room Air Room Air 04/11/18 04/11/18 04/11/18 04/12/18 21:38 21:41 23:00 03:00 Temp 98.3 98.3 Pulse 66 71 Resp 18 B/P (MAP) 151/56 139/75 (96) Pulse Ox 98 98 O2 Delivery Room Air Room Air Room Air 04/12/18 04/12/18 04/12/18 04/12/18 03:51 04:21 06:52 08:15 Temp 98.6 98.6 Pulse 68 68 Resp 18 B/P (MAP) 147/71 (96) 147/71 Pulse Ox 98 95 O2 Delivery Room Air Room Air Room Air 04/12/18 04/12/18 04/12/18 08:15 08:15 08:16 Pulse 68 68 B/P (MAP) 147/71 147/71 O2 Delivery Room Air Intake and Output 04/11/18 04/11/18 04/12/18 15:00 23:00 07:00 Intake Total 600 ml 300 ml Balance 600 ml 300 ml ESTHER OLIVA MD Apr 12, 2018 09:19
[2018-04-12 11:00] VITALS: BP 107/62
--- NOTE | 2018-04-12 11:03 | PDOC ---
Infectious Disease Note Subjective Subjective abd pain is still +, slightly better, no bleeding ROS ROS no n/v/fever Vital Sign Vital Signs Vital Signs Date Time Temp Pulse Resp B/P (MAP) Pulse Ox O2 Delivery O2 Flow Rate FiO2 04/12/18 09:24 Room Air 04/12/18 08:15 68 147/71 04/12/18 06:52 98.6 18 95 98.6 Physical Exam PHYSICAL EXAM GENERAL: Alert, oriented gentleman, not in distress. VITAL SIGNS: Stable, afebrile. HEENT: NAD. NECK: Supple, no JVP, no lymphadenopathy. LUNGS: Clear. HEART: S1, S2 regular. ABDOMEN: Mildly diffusely tender, no rebound or guarding. No organomegaly. EXTREMITIES: No edema or cyanosis. SKIN: Unremarkable. NEUROLOGIC: The patient is neurologically intact. The patient does not look very sick. Labs Lab Laboratory Tests Test 04/12/18 06:00 White Blood Count 10.3 x10^3/uL (4.0-11.0) Red Blood Count 3.69 x10^6/uL (4.30-5.70) Hemoglobin 12.1 g/dL (13.0-17.5) Hematocrit 35.1 % (39.0-53.0) Mean Corpuscular Volume 95 fL (79-100) Mean Corpuscular Hemoglobin 33 pg (25-35) Mean Corpuscular Hemoglobin Concent 34 g/dL (31-37) Red Cell Distribution Width 12.6 % (11.5-14.5) Platelet Count 201 x10^3/uL (140-400) Neutrophils (%) (Auto) 69 % (31-73) Lymphocytes (%) (Auto) 19 % (24-48) Monocytes (%) (Auto) 10 % (0-9) Eosinophils (%) (Auto) 1 % (0-3) Basophils (%) (Auto) 1 % (0-3) Neutrophils # (Auto) 7.1 x10^3uL (1.8-7.7) Lymphocytes # (Auto) 1.9 x10^3/uL (1.0-4.8) Monocytes # (Auto) 1.1 x10^3/uL (0.0-1.1) Eosinophils # (Auto) 0.1 x10^3/uL (0.0-0.7) Basophils # (Auto) 0.0 x10^3/uL (0.0-0.2) Sodium Level 136 mmol/L (136-145) Potassium Level 3.0 mmol/L (3.5-5.1) Chloride Level 100 mmol/L (98-107) Carbon Dioxide Level 26 mmol/L (21-32) Anion Gap 10 (6-14) Blood Urea Nitrogen 23 mg/dL (8-26) Creatinine 1.8 mg/dL (0.7-1.3) Estimated GFR (Cockcroft-Gault) 38.3 Glucose Level 108 mg/dL (70-99) Calcium Level 8.8 mg/dL (8.5-10.1) Micro Microbiology 04/10/18 Fecal Leukocyte Stain - Final, Complete Objective Assessment 1. Colitis, left-sided, most likely ischemic colitis. Other possibilities of Clostridium difficile are possible with having a laboratory error, although PCR is quite accurate, probably less likely. 2. It can be also Shiga toxin producing infectious colitis. Again, the patient does not look that sick. 3. Hypertension. 4. Tobaccoism. 5. Acute kidney injury, probably secondary to dehydration. Plan Plan of Care po vanc can be d/c ed recheck c diff, to rule out lab error need stool culture supportive care d/w CHUY Lassiter MD Apr 12, 2018 11:03
--- NOTE | 2018-04-12 14:22 | PDOC ---
Subjective: Subjective: Saw this morning/unable to chart during [employer] down time. Bleeding resolved, pain ongoing. Objective: Vital Signs: Vital Signs Date Time Temp Pulse Resp B/P (MAP) Pulse Ox O2 Delivery O2 Flow Rate FiO2 04/12/18 11:00 97.9 62 18 107/62 (77) 95 Room Air 97.9 Labs: Laboratory Tests Test 04/12/18 06:00 White Blood Count 10.3 x10^3/uL Red Blood Count 3.69 x10^6/uL Hemoglobin 12.1 g/dL Hematocrit 35.1 % Mean Corpuscular Volume 95 fL Mean Corpuscular Hemoglobin 33 pg Mean Corpuscular Hemoglobin Concent 34 g/dL Red Cell Distribution Width 12.6 % Platelet Count 201 x10^3/uL Neutrophils (%) (Auto) 69 % Lymphocytes (%) (Auto) 19 % Monocytes (%) (Auto) 10 % Eosinophils (%) (Auto) 1 % Basophils (%) (Auto) 1 % Neutrophils # (Auto) 7.1 x10^3uL Lymphocytes # (Auto) 1.9 x10^3/uL Monocytes # (Auto) 1.1 x10^3/uL Eosinophils # (Auto) 0.1 x10^3/uL Basophils # (Auto) 0.0 x10^3/uL Sodium Level 136 mmol/L Potassium Level 3.0 mmol/L Chloride Level 100 mmol/L Carbon Dioxide Level 26 mmol/L Anion Gap 10 Blood Urea Nitrogen 23 mg/dL Creatinine 1.8 mg/dL Estimated GFR (Cockcroft-Gault) 38.3 Glucose Level 108 mg/dL Calcium Level 8.8 mg/dL STOOL CULTURE Final Final report STOOL CULT RES 1 Final No growth CAMPY Preliminary Preliminary report CAMPY RES 1 Preliminary Comment No Campylobacter species isolated. Performed at: - [facility] [place] [address] [facility] [address], [place], [place] [id number] Chief Operator Hydroformer: SANDRA Kruger MD, Phone: [phone] SHIGA TOXIN PENDING Imaging: KUB 04/11 IMPRESSION: 1. Distal colonic wall thickening, better characterized on the recent CT and consistent with acute colitis. 2. Nonspecific air-filled loops of bowel throughout the abdomen. There is no clear transition point to suggest obstruction. PE: GEN: NAD LUNGS: CTAB HEART: RRR ABD: tender NEURO/PSYCH: A & O 3 A/P: Abd pain and diarrhea, colitis Leukocytosis (better), DERRICK (better), hypokalemia -- Slow improvement. Can advance to full liquids. Continue gabriel. NORA STAPLES Apr 12, 2018 14:22
--- NOTE | 2018-04-12 14:38 | NUR ---
SW following. Discussed with RN, pt is from home with . RN advised no SW needs at this time. SW will continue to follow.
[2018-04-12 14:44] VITALS: BP 114/58
--- NOTE | 2018-04-12 17:46 | NUR ---
Computers were down today from approximately 11:30am until 2:30pm. No medications were scanned during that time.
[2018-04-12 19:00] VITALS: BP 128/70
[2018-04-12] MEDS: LACTOBACILLUS RHAMNOSUS GG 1 CAPSULE. PO SCH (20:27)
[2018-04-12] MEDS: CITALOPRAM 20 MG TABLET. PO SCH (20:28)
[2018-04-12] MEDS: SIMVASTATIN 20 MG TABLET PO SCH (20:29)
[2018-04-12 23:00] VITALS: BP 116/61
[2018-04-13 03:00] VITALS: BP 120/63
[2018-04-13] MEDS: MORPHINE SULFATE 4 MG/ML VIAL. IV PRN (04:11)
[2018-04-13 04:30] LABS: HEMATOCRIT 33.3 % (39.0-53.0); HEMOGLOBIN 11.6 g/dL (13.0-17.5); RED BLOOD COUNT 3.51 x10^6/uL (4.30-5.70); RED CELL DISTRIBUTION WIDTH 12.5 % (11.5-14.5); WHITE BLOOD COUNT 8.1 x10^3/uL (4.0-11.0)
[2018-04-13 04:57] LABS: CALCIUM 8.7 mg/dL (8.5-10.1); CREATININE 1.5 mg/dL (0.7-1.3); GFR 47.3; POTASSIUM 3.3 mmol/L (3.5-5.1)
[2018-04-13 07:00] VITALS: BP 145/70
[2018-04-13] MEDS: PANTOPRAZOLE 40 MG TABLET.DR. PO SCH (09:46)
[2018-04-13] MEDS: LACTOBACILLUS RHAMNOSUS GG 1 CAPSULE. PO SCH ×2 (09:46→20:24)
[2018-04-13] MEDS: tiZANidine 4 MG TABLET. PO SCH ×2 (09:46→20:24)
[2018-04-13] MEDS: amLODIPine BESYLATE 5 MG TABLET PO SCH ×2 (09:47→20:24)
[2018-04-13] MEDS: CARVEDILOL 6.25 MG TABLET. PO SCH ×2 (09:48→17:21)
[2018-04-13] MEDS: traMADol 50 MG TABLET PO PRN ×2 (09:48→20:25)
[2018-04-13] MEDS: LISINOPRIL 20 MG TABLET PO SCH ×2 (09:48→20:25)
--- NOTE | 2018-04-13 10:39 | PDOC ---
PROGRESS NOTES History of Present Illness History of Present Illness Assessment/Plan Assessment/Plan Acute colitis pos fecal leukocytes bright red blood per rectum infectious colitis likely, cx, r/o others heavy alcohol use hx cont Cipro and flagyl GI consult admit 04/10 at risk for alcohol withdrawal 04/10 will use protocol per my personal review of ct images has severe colitis 04/11 had blood in stool today 04/12 PAIN WORSE TODAY, Slow to improve d/c vanc per id 04/13 not improved with several stools, pain may be c/w ischemic colitis Hgb good, pt hypertensive, IV fluid if BP allows,. add BP meds tobacco use, education provided for cessation alcohol withdrawal precautions continue Vitals Vitals Vital Signs Date Time Temp Pulse Resp B/P (MAP) Pulse Ox O2 Delivery O2 Flow Rate FiO2 04/13/18 09:48 Room Air 04/13/18 09:48 63 145/70 04/13/18 07:00 98.4 16 96 98.4 Physical Exam Physical Exam GENERAL: Alert, oriented gentleman, not in distress. VITAL SIGNS: Stable, afebrile. HEENT: NAD. NECK: Supple, no JVP, no lymphadenopathy. LUNGS: Clear. HEART: S1, S2 regular. ABDOMEN: Mildly diffusely tender, no rebound or guarding. No organomegaly. EXTREMITIES: No edema or cyanosis. SKIN: Unremarkable. NEUROLOGIC: The patient is neurologically intact. The patient does not look very sick. General: Alert, Oriented X3, Cooperative, No acute distress, mild distress Heart: Regular rate, Normal S1 Lungs: Clear Abdomen: Normal bowel sounds, Soft (tender, no masses, normal sounds), No masses, Other (no guarding, no rebound, no peritoneal sign) Extremities: No clubbing, No cyanosis, No edema Skin: No rashes, No breakdown, No significant lesion Labs LABS Laboratory Tests Test 04/13/18 04:00 White Blood Count 8.1 x10^3/uL (4.0-11.0) Red Blood Count 3.51 x10^6/uL (4.30-5.70) Hemoglobin 11.6 g/dL (13.0-17.5) Hematocrit 33.3 % (39.0-53.0) Mean Corpuscular Volume 95 fL (79-100) Mean Corpuscular Hemoglobin 33 pg (25-35) Mean Corpuscular Hemoglobin Concent 35 g/dL (31-37) Red Cell Distribution Width 12.5 % (11.5-14.5) Platelet Count 211 x10^3/uL (140-400) Sodium Level 139 mmol/L (136-145) Potassium Level 3.3 mmol/L (3.5-5.1) Chloride Level 102 mmol/L (98-107) Carbon Dioxide Level 27 mmol/L (21-32) Anion Gap 10 (6-14) Blood Urea Nitrogen 20 mg/dL (8-26) Creatinine 1.5 mg/dL (0.7-1.3) Estimated GFR (Cockcroft-Gault) 47.3 Glucose Level 103 mg/dL (70-99) Calcium Level 8.7 mg/dL (8.5-10.1) Assessment and Plan Assessmemt and Plan Problems Medical Problems: (1) Acute hemorrhagic colitis Status: Acute Comment Review of Relevant I have reviewed the following items reena (where applicable) has been applied. Labs Laboratory Tests Test 04/12/18 06:00 04/13/18 04:00 White Blood Count 10.3 x10^3/uL (4.0-11.0) 8.1 x10^3/uL (4.0-11.0) Red Blood Count 3.69 x10^6/uL (4.30-5.70) 3.51 x10^6/uL (4.30-5.70) Hemoglobin 12.1 g/dL (13.0-17.5) 11.6 g/dL (13.0-17.5) Hematocrit 35.1 % (39.0-53.0) 33.3 % (39.0-53.0) Mean Corpuscular Volume 95 fL (79-100) 95 fL (79-100) Mean Corpuscular Hemoglobin 33 pg (25-35) 33 pg (25-35) Mean Corpuscular Hemoglobin Concent 34 g/dL (31-37) 35 g/dL (31-37) Red Cell Distribution Width 12.6 % (11.5-14.5) 12.5 % (11.5-14.5) Platelet Count 201 x10^3/uL (140-400) 211 x10^3/uL (140-400) Neutrophils (%) (Auto) 69 % (31-73) Lymphocytes (%) (Auto) 19 % (24-48) Monocytes (%) (Auto) 10 % (0-9) Eosinophils (%) (Auto) 1 % (0-3) Basophils (%) (Auto) 1 % (0-3) Neutrophils # (Auto) 7.1 x10^3uL (1.8-7.7) Lymphocytes # (Auto) 1.9 x10^3/uL (1.0-4.8) Monocytes # (Auto) 1.1 x10^3/uL (0.0-1.1) Eosinophils # (Auto) 0.1 x10^3/uL (0.0-0.7) Basophils # (Auto) 0.0 x10^3/uL (0.0-0.2) Sodium Level 136 mmol/L (136-145) 139 mmol/L (136-145) Potassium Level 3.0 mmol/L (3.5-5.1) 3.3 mmol/L (3.5-5.1) Chloride Level 100 mmol/L (98-107) 102 mmol/L (98-107) Carbon Dioxide Level 26 mmol/L (21-32) 27 mmol/L (21-32) Anion Gap 10 (6-14) 10 (6-14) Blood Urea Nitrogen 23 mg/dL (8-26) 20 mg/dL (8-26) Creatinine 1.8 mg/dL (0.7-1.3) 1.5 mg/dL (0.7-1.3) Estimated GFR (Cockcroft-Gault) 38.3 47.3 Glucose Level 108 mg/dL (70-99) 103 mg/dL (70-99) Calcium Level 8.8 mg/dL (8.5-10.1) 8.7 mg/dL (8.5-10.1) Laboratory Tests Test 04/13/18 04:00 White Blood Count 8.1 x10^3/uL (4.0-11.0) Red Blood Count 3.51 x10^6/uL (4.30-5.70) Hemoglobin 11.6 g/dL (13.0-17.5) Hematocrit 33.3 % (39.0-53.0) Mean Corpuscular Volume 95 fL (79-100) Mean Corpuscular Hemoglobin 33 pg (25-35) Mean Corpuscular Hemoglobin Concent 35 g/dL (31-37) Red Cell Distribution Width 12.5 % (11.5-14.5) Platelet Count 211 x10^3/uL (140-400) Sodium Level 139 mmol/L (136-145) Potassium Level 3.3 mmol/L (3.5-5.1) Chloride Level 102 mmol/L (98-107) Carbon Dioxide Level 27 mmol/L (21-32) Anion Gap 10 (6-14) Blood Urea Nitrogen 20 mg/dL (8-26) Creatinine 1.5 mg/dL (0.7-1.3) Estimated GFR (Cockcroft-Gault) 47.3 Glucose Level 103 mg/dL (70-99) Calcium Level 8.7 mg/dL (8.5-10.1) Microbiology 04/10/18 Stool Culture - Final, Resulted 04/10/18 Stool Culture Result 1 (ADNIAL) - Final, Resulted 04/10/18 Campylobacter Antigen Assay - Preliminary, Resulted 04/10/18 Campylobactor Result 1 - Preliminary, Resulted 04/10/18 Shiga Toxin Test, Resulted Pending Medications Current Medications Morphine Sulfate (Morphine Sulfate) 4 mg 1X ONCE IV Last administered on at 11:55; Start 04/09/18 at 11:45; Stop 04/09/18 at 11:46; Status DC Ondansetron HCl (Zofran) 4 mg 1X ONCE IV Last administered on 04/09/18at 11:55 ; Start 04/09/18 at 11:45; Stop 04/09/18 at 11:46; Status DC Iohexol (Omnipaque 300 Mg/ml) 75 ml 1X ONCE IV Last administered on 04/09/18at 13:06; Start 04/09/18 at 13:00; Stop 04/09/18 at 13:01; Status DC Ciprofloxacin/ Dextrose 200 ml @ 200 mls/hr 1X ONCE IV Last administered on at 13:56; Start 04/09/18 at 13:45; Stop 04/09/18 at 14:44; Status DC Metronidazole 100 ml @ 100 mls/hr 1X ONCE IV Last administered on 04/09/18at 16:21; Start 04/09/18 at 13:45; Stop 04/09/18 at 14:44; Status DC Ondansetron HCl (Zofran) 4 mg PRN Q8HRS PRN IV NAUSEA/VOMITING; Start 04/09/18 at 14:15; Stop 04/10/18 at 14:14; Status DC Morphine Sulfate (Morphine Sulfate) 2 mg PRN Q2HR PRN IV PAIN Last administered on 04/10/18 12:36; Start 04/09/18 at 14:15; Stop 04/10/18 at 14:14 ; Status DC Sodium Chloride 1,000 ml @ 100 mls/hr Q10H IV Last administered on 04/10/18 14:48; Start 04/09/18 at 14:15; Stop 04/10/18 at 14:14; Status DC Ciprofloxacin (Cipro) 500 mg BID PO Last administered on 04/10/18 08:11; Start 04/09/18 at 21:00; Stop 04/10/18 at 14:36; Status DC Metronidazole (Flagyl) 500 mg Q8HRS PO Last administered on 04/10/18 06:01; Start 04/09/18 at 22:00; Stop 04/10/18 at 14:36; Status DC Amlodipine Besylate (Norvasc) 5 mg BID PO Last administered on 04/13/18 09:47 ; Start 04/09/18 at 21:00 Tramadol HCl (Ultram) 50 mg TID PRN PO PAIN Last administered on 04/10/18 14: 48; Start 04/09/18 at 16:45; Stop 04/10/18 at 19:54; Status DC Baclofen (Lioresal) 10 mg TID PO ; Start 04/09/18 at 21:00; Stop 04/09/18 at 21: 00; Status DC Lisinopril (Prinivil) 20 mg BID PO Last administered on 04/13/18 09:48; Start 04/09/18 at 21:00 Carvedilol (Coreg) 6.25 mg BIDWMEALS PO Last administered on 04/13/18 09:48; Start 04/09/18 at 17:00 Citalopram Hydrobromide (CeleXA) 20 mg QHS PO Last administered on 04/12/18at 20 :28; Start 04/09/18 at 21:00 Pantoprazole Sodium (Protonix) 40 mg DAILYAC PO Last administered on 04/13/18 09:46; Start 04/10/18 at 07:30 Simvastatin (Zocor) 20 mg HS PO Last administered on 04/11/18 21:37; Start at 21:00 Tizanidine HCl (Zanaflex) 4 mg BID PO Last administered on 04/13/18 09:46; Start 04/09/18 at 21:00 Nicotine (Nicoderm Cq 14mg) 1 patch PRN DAILY PRN TD SMOKING CESSATION; Start 04/09/18 at 18:30 Vancomycin HCl (Vancomycin Oral Solution) 125 mg [id number] PO Last administered on 04/12/18 12:35; Start 04/10/18 at 17:00; Stop 04/12/18 at 16:16; Status DC Potassium Chloride/Water 100 ml @ 100 mls/hr Q1H IV Last administered on 19:08; Start 04/10/18 at 17:00; Stop 04/10/18 at 18:59; Status DC Tramadol HCl (Ultram) 50 mg PRN DAILY PRN PO PAIN Last administered on 09:48; Start 04/10/18 at 20:00 Tramadol HCl (Ultram) 100 mg PRN QHS PRN PO PAIN Last administered on 20:29; Start 04/10/18 at 20:00 Morphine Sulfate (Morphine Sulfate) 2 mg PRN Q2HR PRN IV PAIN Last administered on 04/13/18 04:11; Start 04/10/18 at 20:00 Lactobacillus Rhamnosus (Culturelle) 1 cap BID PO Last administered on 09:46; Start 04/12/18 at 21:00 Active Scripts Active Reported Aspir-Low (Aspirin) 81 Mg Tablet.dr 1 Tab PO HS Escitalopram Oxalate 10 Mg Tablet 1 Tab PO HS Omeprazole 40 Mg Capsule.dr 1 Cap PO DAILY Tizanidine Hcl 4 Mg Tablet 1 Tab PO BID Baclofen 20 Mg Tablet 10 Mg PO TID Fosinopril Sodium 40 Mg Tablet 20 Mg PO DAILY Amlodipine Besylate 10 Mg Tablet 5 Mg PO QHS Tramadol Hcl 50 Mg Tablet 50 Mg PO TID PRN Vitals/I & O Vital Sign - Last 24 Hours 04/12/18 04/12/18 04/12/18 04/12/18 11:00 14:44 16:33 16:34 Temp 97.9 97.9 97.9 97.9 Pulse 62 65 65 Resp 18 18 B/P (MAP) 107/62 (77) 114/58 (76) 114/58 Pulse Ox 95 97 O2 Delivery Room Air Room Air Room Air 04/12/18 04/12/18 04/12/18 04/12/18 17:28 19:00 20:00 20:28 Temp 97.9 97.9 Pulse 72 72 Resp 18 B/P (MAP) 128/70 (89) 128/70 Pulse Ox 96 O2 Delivery Room Air Room Air Room Air 04/12/18 04/12/18 04/13/18 04/13/18 20:29 23:00 03:00 04:11 Temp 98.0 98.0 98.0 98.0 Pulse 63 61 Resp 18 19 18 18 B/P (MAP) 116/61 (79) 120/63 (82) Pulse Ox 97 97 O2 Delivery Room Air Room Air Room Air Room Air 04/13/18 04/13/18 04/13/18 04/13/18 07:00 09:47 09:48 09:48 Temp 98.4 98.4 Pulse 63 63 63 63 Resp 16 B/P (MAP) 145/70 (95) 145/70 145/70 145/70 Pulse Ox 96 O2 Delivery Room Air 04/13/18 09:48 O2 Delivery Room Air Intake and Output 04/12/18 04/12/18 04/13/18 14:59 22:59 06:59 Intake Total 350 ml 300 ml Output Total 0 ml Balance 350 ml 300 ml 0 ml ESTHER OLIVA MD Apr 13, 2018 10:39
--- NOTE | 2018-04-13 10:48 | PDOC ---
Subjective: Subjective: Still has abd pain but less. Pain is usually worse at 4:00 a.m. and wakes him up. 3 stools today - still "diarrhea" but no blood. Objective: Objective: Paged by RN asking about advancing to GI soft. Note vanco was stopped. Vital Signs: Vital Signs Date Time Temp Pulse Resp B/P (MAP) Pulse Ox O2 Delivery O2 Flow Rate FiO2 04/13/18 09:48 Room Air 04/13/18 09:48 63 145/70 04/13/18 07:00 98.4 16 96 98.4 Labs: Laboratory Tests Test 04/13/18 04:00 White Blood Count 8.1 x10^3/uL Red Blood Count 3.51 x10^6/uL Hemoglobin 11.6 g/dL Hematocrit 33.3 % Mean Corpuscular Volume 95 fL Mean Corpuscular Hemoglobin 33 pg Mean Corpuscular Hemoglobin Concent 35 g/dL Red Cell Distribution Width 12.5 % Platelet Count 211 x10^3/uL Sodium Level 139 mmol/L Potassium Level 3.3 mmol/L Chloride Level 102 mmol/L Carbon Dioxide Level 27 mmol/L Anion Gap 10 Blood Urea Nitrogen 20 mg/dL Creatinine 1.5 mg/dL Estimated GFR (Cockcroft-Gault) 47.3 Glucose Level 103 mg/dL Calcium Level 8.7 mg/dL STOOL CULTURE Final Final report STOOL CULT RES 1 Final No growth CAMPY Preliminary Preliminary report CAMPY RES 1 Preliminary Comment No Campylobacter species isolated. SHIGA TOXIN Final Negative PE: GEN: NAD LUNGS: CTAB HEART: RRR ABD: BS+, soft, less tender NEURO/PSYCH: A & O 3 A/P: Colitis - ?ischemic DERRICK (better), hypokalemia (better) -- Improving though still some pain. Will review advancing diet w/ Dr. Quiroz. NORA STAPLES Apr 13, 2018 10:48
[2018-04-13 11:00] VITALS: BP 120/69
--- NOTE | 2018-04-13 11:12 | PDOC ---
Infectious Disease Note Subjective Subjective abd pain much better, no bleeding ROS ROS no n/v/fever Vital Sign Vital Signs Vital Signs Date Time Temp Pulse Resp B/P (MAP) Pulse Ox O2 Delivery O2 Flow Rate FiO2 04/13/18 10:58 Room Air 04/13/18 09:48 63 145/70 04/13/18 07:00 98.4 16 96 98.4 Physical Exam PHYSICAL EXAM GENERAL: Alert, oriented gentleman, not in distress. VITAL SIGNS: Stable, afebrile. HEENT: NAD. NECK: Supple, no JVP, no lymphadenopathy. LUNGS: Clear. HEART: S1, S2 regular. ABDOMEN: Mildly diffusely tender, no rebound or guarding. No organomegaly. EXTREMITIES: No edema or cyanosis. SKIN: Unremarkable. NEUROLOGIC: The patient is neurologically intact. The patient does not look very sick. Labs Lab Laboratory Tests Test 04/13/18 04:00 White Blood Count 8.1 x10^3/uL (4.0-11.0) Red Blood Count 3.51 x10^6/uL (4.30-5.70) Hemoglobin 11.6 g/dL (13.0-17.5) Hematocrit 33.3 % (39.0-53.0) Mean Corpuscular Volume 95 fL (79-100) Mean Corpuscular Hemoglobin 33 pg (25-35) Mean Corpuscular Hemoglobin Concent 35 g/dL (31-37) Red Cell Distribution Width 12.5 % (11.5-14.5) Platelet Count 211 x10^3/uL (140-400) Sodium Level 139 mmol/L (136-145) Potassium Level 3.3 mmol/L (3.5-5.1) Chloride Level 102 mmol/L (98-107) Carbon Dioxide Level 27 mmol/L (21-32) Anion Gap 10 (6-14) Blood Urea Nitrogen 20 mg/dL (8-26) Creatinine 1.5 mg/dL (0.7-1.3) Estimated GFR (Cockcroft-Gault) 47.3 Glucose Level 103 mg/dL (70-99) Calcium Level 8.7 mg/dL (8.5-10.1) Micro Microbiology 04/10/18 Fecal Leukocyte Stain - Final, Complete Objective Assessment 1. Colitis, left-sided, most likely ischemic colitis. Other possibilities of Clostridium difficile are possible with having a laboratory error, although PCR is quite accurate, probably less likely. 2. It can be also Shiga toxin producing infectious colitis. Again, the patient does not look that sick. 3. Hypertension. 4. Tobaccoism. 5. Acute kidney injury, probably secondary to dehydration. Plan Plan of Care advance diet slowly need stool culture supportive care d/w CHUY Lassiter MD Apr 13, 2018 11:12
--- NOTE | 2018-04-13 13:01 | NUR ---
SW following. Discussed with RN, RN advised no SW needs at this time. Pt likely to discharge today or tomorrow, home with . SW will continue to follow.
[2018-04-13 15:00] VITALS: BP 120/69
[2018-04-13 19:00] VITALS: BP 140/81
[2018-04-13] MEDS: CITALOPRAM 20 MG TABLET. PO SCH (20:24)
[2018-04-13] MEDS: SIMVASTATIN 20 MG TABLET PO SCH (20:24)
[2018-04-13 22:53] VITALS: BP 114/65
[2018-04-14] MEDS: MORPHINE SULFATE 4 MG/ML VIAL. IV PRN (02:19)
[2018-04-14 02:52] VITALS: BP 105/62
[2018-04-14 07:00] VITALS: BP 134/70
[2018-04-14] MEDS: LISINOPRIL 20 MG TABLET PO SCH (09:03)
[2018-04-14] MEDS: traMADol 50 MG TABLET PO PRN (09:04)
[2018-04-14] MEDS: CARVEDILOL 6.25 MG TABLET. PO SCH (09:04)
[2018-04-14] MEDS: LACTOBACILLUS RHAMNOSUS GG 1 CAPSULE. PO SCH (09:04)
[2018-04-14] MEDS: amLODIPine BESYLATE 5 MG TABLET PO SCH (09:04)
[2018-04-14] MEDS: PANTOPRAZOLE 40 MG TABLET.DR. PO SCH (09:04)
[2018-04-14] MEDS: tiZANidine 4 MG TABLET. PO SCH (09:08)
--- NOTE | 2018-04-14 10:46 | PDOC ---
Subjective: Subjective: Asked if he was better - "I wish!" Admits less abd pain, feels he could control this at home w/ Tramadol. Two stools this morning - more formed, no blood. Objective: Objective: Per RN - tolerating diet, reported a more formed stool, would like to go home. D/w Dr. Espinoza. Vital Signs: Vital Signs Date Time Temp Pulse Resp B/P (MAP) Pulse Ox O2 Delivery O2 Flow Rate FiO2 04/14/18 10:28 Room Air 04/14/18 09:04 65 134/70 04/14/18 07:00 98.6 18 95 98.6 PE: GEN: NAD LUNGS: CTAB HEART: RRR ABD: soft, BS+, less tender NEURO/PSYCH: A & O 3 A/P: Colitis -- Improved - less diarrhea and abd pain, no further bleeding, tolerating PO. Okay to DC per GI. NORA STAPLES Apr 14, 2018 10:46
[2018-04-14 11:00] VITALS: BP 122/56
--- NOTE | 2018-04-14 11:07 | NUR ---
SW following. Discussed with RN, RN advised no SW needs and anticipates pt will discharge home today. SW will continue to follow.
--- NOTE | 2018-04-14 11:09 | PDOC ---
Infectious Disease Note Subjective Subjective abd pain much better, no bleeding ROS ROS no n/v Vital Sign Vital Signs Vital Signs Date Time Temp Pulse Resp B/P (MAP) Pulse Ox O2 Delivery O2 Flow Rate FiO2 04/14/18 10:28 Room Air 04/14/18 09:04 65 134/70 04/14/18 07:00 98.6 18 95 98.6 Physical Exam PHYSICAL EXAM GENERAL: Alert, oriented gentleman, not in distress. VITAL SIGNS: Stable, afebrile. HEENT: NAD. NECK: Supple, no JVP, no lymphadenopathy. LUNGS: Clear. HEART: S1, S2 regular. ABDOMEN: Mildly diffusely tender, no rebound or guarding. No organomegaly. EXTREMITIES: No edema or cyanosis. SKIN: Unremarkable. NEUROLOGIC: The patient is neurologically intact. The patient does not look very sick. Labs Micro Microbiology 04/10/18 Fecal Leukocyte Stain - Final, Complete Objective Assessment 1. Colitis, left-sided, most likely ischemic colitis. Other possibilities of Clostridium difficile are possible with having a laboratory error, although PCR is quite accurate, probably less likely. 2. It can be also Shiga toxin producing infectious colitis. Again, the patient does not look that sick. 3. Hypertension. 4. Tobaccoism. 5. Acute kidney injury, probably secondary to dehydration. Plan Plan of Care advance diet per GI ok to d/c CHUY ENRIQUEZ MD Apr 14, 2018 11:09
--- NOTE | 2018-04-14 11:57 | PDOC ---
PROGRESS NOTES History of Present Illness History of Present Illness Assessment/Plan Assessment/Plan Acute colitis pos fecal leukocytes bright red blood per rectum infectious colitis likely, cx, r/o others heavy alcohol use hx cont Cipro and flagyl GI consult admit 04/10 at risk for alcohol withdrawal 04/10 will use protocol per my personal review of ct images has severe colitis 04/11 had blood in stool today 04/12 PAIN WORSE TODAY, Slow to improve d/c vanc per id 04/13 not improved with several stools, pain may be c/w ischemic colitis 04/14 HOME TODAY OK WITH consultants k replaced on d/c d/c planning 38 min Hgb good, pt hypertensive, IV fluid if BP allows,. add BP meds tobacco use, education provided for cessation alcohol withdrawal precautions continue Vitals Vitals Vital Signs Date Time Temp Pulse Resp B/P (MAP) Pulse Ox O2 Delivery O2 Flow Rate FiO2 04/14/18 10:28 Room Air 04/14/18 09:04 65 134/70 04/14/18 07:00 98.6 18 95 98.6 Physical Exam Physical Exam GENERAL: Alert, oriented gentleman, not in distress. VITAL SIGNS: Stable, afebrile. HEENT: NAD. NECK: Supple, no JVP, no lymphadenopathy. LUNGS: Clear. HEART: S1, S2 regular. ABDOMEN: Mildly diffusely tender, no rebound or guarding. No organomegaly. EXTREMITIES: No edema or cyanosis. SKIN: Unremarkable. NEUROLOGIC: The patient is neurologically intact. The patient does not look very sick. General: Alert, Oriented X3, Cooperative, No acute distress, mild distress Heart: Regular rate, Normal S1 Lungs: Clear Abdomen: Normal bowel sounds, Soft (tender, no masses, normal sounds), No masses, Other (no guarding, no rebound, no peritoneal sign) Extremities: No clubbing, No cyanosis, No edema Skin: No rashes, No breakdown, No significant lesion Assessment and Plan Assessmemt and Plan Problems Medical Problems: (1) Acute hemorrhagic colitis Status: Acute Comment Review of Relevant I have reviewed the following items reena (where applicable) has been applied. Labs Laboratory Tests Test 04/13/18 04:00 White Blood Count 8.1 x10^3/uL (4.0-11.0) Red Blood Count 3.51 x10^6/uL (4.30-5.70) Hemoglobin 11.6 g/dL (13.0-17.5) Hematocrit 33.3 % (39.0-53.0) Mean Corpuscular Volume 95 fL (79-100) Mean Corpuscular Hemoglobin 33 pg (25-35) Mean Corpuscular Hemoglobin Concent 35 g/dL (31-37) Red Cell Distribution Width 12.5 % (11.5-14.5) Platelet Count 211 x10^3/uL (140-400) Sodium Level 139 mmol/L (136-145) Potassium Level 3.3 mmol/L (3.5-5.1) Chloride Level 102 mmol/L (98-107) Carbon Dioxide Level 27 mmol/L (21-32) Anion Gap 10 (6-14) Blood Urea Nitrogen 20 mg/dL (8-26) Creatinine 1.5 mg/dL (0.7-1.3) Estimated GFR (Cockcroft-Gault) 47.3 Glucose Level 103 mg/dL (70-99) Calcium Level 8.7 mg/dL (8.5-10.1) Microbiology 04/10/18 Stool Culture - Final, Resulted 04/10/18 Stool Culture Result 1 (DANIAL) - Final, Resulted 04/10/18 Campylobacter Antigen Assay - Preliminary, Resulted 04/10/18 Campylobactor Result 1 - Preliminary, Resulted 04/10/18 Shiga Toxin Test - Final, Resulted Medications Current Medications Morphine Sulfate (Morphine Sulfate) 4 mg 1X ONCE IV Last administered on at 11:55; Start 04/09/18 at 11:45; Stop 04/09/18 at 11:46; Status DC Ondansetron HCl (Zofran) 4 mg 1X ONCE IV Last administered on 04/09/18at 11:55 ; Start 04/09/18 at 11:45; Stop 04/09/18 at 11:46; Status DC Iohexol (Omnipaque 300 Mg/ml) 75 ml 1X ONCE IV Last administered on 04/09/18at 13:06; Start 04/09/18 at 13:00; Stop 04/09/18 at 13:01; Status DC Ciprofloxacin/ Dextrose 200 ml @ 200 mls/hr 1X ONCE IV Last administered on at 13:56; Start 04/09/18 at 13:45; Stop 04/09/18 at 14:44; Status DC Metronidazole 100 ml @ 100 mls/hr 1X ONCE IV Last administered on 04/09/18 16:21; Start 04/09/18 at 13:45; Stop 04/09/18 at 14:44; Status DC Ondansetron HCl (Zofran) 4 mg PRN Q8HRS PRN IV NAUSEA/VOMITING; Start 04/09/18 at 14:15; Stop 04/10/18 at 14:14; Status DC Morphine Sulfate (Morphine Sulfate) 2 mg PRN Q2HR PRN IV PAIN Last administered on 04/10/18 12:36; Start 04/09/18 at 14:15; Stop 04/10/18 at 14:14 ; Status DC Sodium Chloride 1,000 ml @ 100 mls/hr Q10H IV Last administered on 04/10/18 14:48; Start 04/09/18 at 14:15; Stop 04/10/18 at 14:14; Status DC Ciprofloxacin (Cipro) 500 mg BID PO Last administered on 04/10/18 08:11; Start 04/09/18 at 21:00; Stop 04/10/18 at 14:36; Status DC Metronidazole (Flagyl) 500 mg Q8HRS PO Last administered on 04/10/18 06:01; Start 04/09/18 at 22:00; Stop 04/10/18 at 14:36; Status DC Amlodipine Besylate (Norvasc) 5 mg BID PO Last administered on 04/14/18 09:04; Start 04/09/18 at 21:00 Tramadol HCl (Ultram) 50 mg TID PRN PO PAIN Last administered on 04/10/18 14: 48; Start 04/09/18 at 16:45; Stop 04/10/18 at 19:54; Status DC Baclofen (Lioresal) 10 mg TID PO ; Start 04/09/18 at 21:00; Stop 04/09/18 at 21: 00; Status DC Lisinopril (Prinivil) 20 mg BID PO Last administered on 04/14/18 09:03; Start 04/09/18 at 21:00 Carvedilol (Coreg) 6.25 mg BIDWMEALS PO Last administered on 04/14/18 09:04; Start 04/09/18 at 17:00 Citalopram Hydrobromide (CeleXA) 20 mg QHS PO Last administered on 04/13/18 20 :24; Start 04/09/18 at 21:00 Pantoprazole Sodium (Protonix) 40 mg DAILYAC PO Last administered on 04/14/18 09:04; Start 04/10/18 at 07:30 Simvastatin (Zocor) 20 mg HS PO Last administered on 04/13/18 20:24; Start at 21:00 Tizanidine HCl (Zanaflex) 4 mg BID PO Last administered on 04/14/18 09:08; Start 04/09/18 at 21:00 Nicotine (Nicoderm Cq 14mg) 1 patch PRN DAILY PRN TD SMOKING CESSATION; Start 04/09/18 at 18:30 Vancomycin HCl (Vancomycin Oral Solution) 125 mg [id number] PO Last administered on 04/12/18 12:35; Start 04/10/18 at 17:00; Stop 04/12/18 at 16:16; Status DC Potassium Chloride/Water 100 ml @ 100 mls/hr Q1H IV Last administered on 19:08; Start 04/10/18 at 17:00; Stop 04/10/18 at 18:59; Status DC Tramadol HCl (Ultram) 50 mg PRN DAILY PRN PO PAIN Last administered on 09:04; Start 04/10/18 at 20:00 Tramadol HCl (Ultram) 100 mg PRN QHS PRN PO PAIN Last administered on 20:25; Start 04/10/18 at 20:00 Morphine Sulfate (Morphine Sulfate) 2 mg PRN Q2HR PRN IV PAIN Last administered on 04/14/18 02:19; Start 04/10/18 at 20:00 Lactobacillus Rhamnosus (Culturelle) 1 cap BID PO Last administered on 09:04; Start 04/12/18 at 21:00 Active Scripts Active Reported Aspir-Low (Aspirin) 81 Mg Tablet.dr 1 Tab PO HS Escitalopram Oxalate 10 Mg Tablet 1 Tab PO HS Omeprazole 40 Mg Capsule.dr 1 Cap PO DAILY Tizanidine Hcl 4 Mg Tablet 1 Tab PO BID Baclofen 20 Mg Tablet 10 Mg PO TID Fosinopril Sodium 40 Mg Tablet 20 Mg PO DAILY Amlodipine Besylate 10 Mg Tablet 5 Mg PO QHS Tramadol Hcl 50 Mg Tablet 50 Mg PO TID PRN Vitals/I & O Vital Sign - Last 24 Hours 04/13/18 04/13/18 04/13/18 04/13/18 15:00 17:21 19:00 20:00 Temp 98.2 98.4 98.2 98.4 Pulse 61 61 63 Resp 18 B/P (MAP) 120/69 (86) 138/69 140/81 (100) Pulse Ox 96 96 O2 Delivery Room Air Room Air Room Air 04/13/18 04/13/18 04/13/18 04/13/18 20:24 20:25 20:25 22:53 Temp 99.0 99.0 Pulse 63 63 59 Resp 16 B/P (MAP) 140/81 140/81 114/65 (81) Pulse Ox 96 97 O2 Delivery Room Air Room Air 04/14/18 04/14/18 04/14/18 04/14/18 02:19 02:52 07:00 08:00 Temp 98.6 98.6 98.6 98.6 Pulse 62 65 Resp 18 18 B/P (MAP) 105/62 (76) 134/70 (91) Pulse Ox 97 97 95 O2 Delivery Room Air Room Air Room Air Room Air 04/14/18 04/14/18 04/14/18 04/14/18 09:03 09:04 09:04 09:04 Pulse 65 65 65 B/P (MAP) 134/70 134/70 134/70 O2 Delivery Room Air 04/14/18 10:28 O2 Delivery Room Air Intake and Output 04/13/18 04/13/18 04/14/18 14:59 22:59 06:59 Intake Total 2350 ml 1300 ml 300 ml Output Total 0 ml Balance 2350 ml 1300 ml 300 ml ESTHER OLIVA MD Apr 14, 2018 11:57
[2018-04-14 15:00] VITALS: BP 131/69
--- NOTE | 2018-04-14 15:30 | PDOC3 ---
Discharge Summary Date of Admission: Apr 09, 2018 Date of Discharge: Apr 14, 2018 Follow-Up: 3-5 days Admitting Diagnosis comment: discharge diagnosis Assessment/Plan Acute colitis pos fecal leukocytes bright red blood per rectum infectious colitis likely, cx, r/o others heavy alcohol use hx cont Cipro and flagyl GI consult d/c today 04/10 at risk for alcohol withdrawal 04/10 will use protocol per my personal review of ct images has severe colitis 04/11 had blood in stool today 04/12 PAIN WORSE TODAY, Slow to improve d/c vanc per id 04/13 not improved with several stools, pain may be c/w ischemic colitis 04/14 HOME TODAY OK WITH consultants k replaced on d/c d/c planning 38 min Hgb good, pt hypertensive, IV fluid if BP allows,. add BP meds tobacco use, education provided for cessation alcohol withdrawal precautions continue Vitals Vitals Vital Signs Date Time Temp Pulse Resp B/P (MAP) Pulse Ox O2 Delivery O2 Flow Rate FiO2 04/14/18 10:28 Room Air 04/14/18 09:04 65 134/70 04/14/18 07:00 98.6 18 95 98.6 Physical Exam Physical Exam GENERAL: Alert, oriented gentleman, not in distress. VITAL SIGNS: Stable, afebrile. HEENT: NAD. NECK: Supple, no JVP, no lymphadenopathy. LUNGS: Clear. HEART: S1, S2 regular. ABDOMEN: Mildly diffusely tender, no rebound or guarding. No organomegaly. EXTREMITIES: No edema or cyanosis. SKIN: Unremarkable. NEUROLOGIC: The patient is neurologically intact. The patient does not look very sick. General: Alert, Oriented X3, Cooperative, No acute distress, mild distress Heart: Regular rate, Normal S1 Lungs: Clear Abdomen: Normal bowel sounds, Soft (tender, no masses, normal sounds), No masses, Other (no guarding, no rebound, no peritoneal sign) Extremities: No clubbing, No cyanosis, No edema Skin: No rashes, No breakdown, No significant lesion FINAL DIAGNOSIS Problems Medical Problems: (1) Acute hemorrhagic colitis Status: Acute Brief Hospital Course Mr. Peacock is a 62 old [sex] who presented with [acute colitis ] CONDITION AT DISCHARGE: Improved Discharge Medications Current Medications Morphine Sulfate (Morphine Sulfate) 4 mg 1X ONCE IV Last administered on 2/24/ 19at 11:55; Start 04/09/18 at 11:45; Stop 04/09/18 at 11:46; Status DC Ondansetron HCl (Zofran) 4 mg 1X ONCE IV Last administered on 04/09/18 11:55 ; Start 04/09/18 at 11:45; Stop 04/09/18 at 11:46; Status DC Iohexol (Omnipaque 300 Mg/ml) 75 ml 1X ONCE IV Last administered on 04/09/18 13:06; Start 04/09/18 at 13:00; Stop 04/09/18 at 13:01; Status DC Ciprofloxacin/ Dextrose 200 ml @ 200 mls/hr 1X ONCE IV Last administered on 13:56; Start 04/09/18 at 13:45; Stop 04/09/18 at 14:44; Status DC Metronidazole 100 ml @ 100 mls/hr 1X ONCE IV Last administered on 04/09/18 16:21; Start 04/09/18 at 13:45; Stop 04/09/18 at 14:44; Status DC Ondansetron HCl (Zofran) 4 mg PRN Q8HRS PRN IV NAUSEA/VOMITING; Start 04/09/18 at 14:15; Stop 04/10/18 at 14:14; Status DC Morphine Sulfate (Morphine Sulfate) 2 mg PRN Q2HR PRN IV PAIN Last administered on 04/10/18 12:36; Start 04/09/18 at 14:15; Stop 04/10/18 at 14:14 ; Status DC Sodium Chloride 1,000 ml @ 100 mls/hr Q10H IV Last administered on 04/10/18 14:48; Start 04/09/18 at 14:15; Stop 04/10/18 at 14:14; Status DC Ciprofloxacin (Cipro) 500 mg BID PO Last administered on 04/10/18 08:11; Start 04/09/18 at 21:00; Stop 04/10/18 at 14:36; Status DC Metronidazole (Flagyl) 500 mg Q8HRS PO Last administered on 04/10/18 06:01; Start 04/09/18 at 22:00; Stop 04/10/18 at 14:36; Status DC Amlodipine Besylate (Norvasc) 5 mg BID PO Last administered on 04/14/18 09:04; Start 04/09/18 at 21:00 Tramadol HCl (Ultram) 50 mg TID PRN PO PAIN Last administered on 04/10/18 14: 48; Start 04/09/18 at 16:45; Stop 04/10/18 at 19:54; Status DC Baclofen (Lioresal) 10 mg TID PO ; Start 04/09/18 at 21:00; Stop 04/09/18 at 21: 00; Status DC Lisinopril (Prinivil) 20 mg BID PO Last administered on 04/14/18 09:03; Start 04/09/18 at 21:00 Carvedilol (Coreg) 6.25 mg BIDWMEALS PO Last administered on 04/14/18 09:04; Start 04/09/18 at 17:00 Citalopram Hydrobromide (CeleXA) 20 mg QHS PO Last administered on 04/13/18 20 :24; Start 04/09/18 at 21:00 Pantoprazole Sodium (Protonix) 40 mg DAILYAC PO Last administered on 04/14/18 09:04; Start 04/10/18 at 07:30 Simvastatin (Zocor) 20 mg HS PO Last administered on 04/13/18 20:24; Start at 21:00 Tizanidine HCl (Zanaflex) 4 mg BID PO Last administered on 04/14/18 09:08; Start 04/09/18 at 21:00 Nicotine (Nicoderm Cq 14mg) 1 patch PRN DAILY PRN TD SMOKING CESSATION; Start 04/09/18 at 18:30 Vancomycin HCl (Vancomycin Oral Solution) 125 mg [id number] PO Last administered on 04/12/18 12:35; Start 04/10/18 at 17:00; Stop 04/12/18 at 16:16; Status DC Potassium Chloride/Water 100 ml @ 100 mls/hr Q1H IV Last administered on 19:08; Start 04/10/18 at 17:00; Stop 04/10/18 at 18:59; Status DC Tramadol HCl (Ultram) 50 mg PRN DAILY PRN PO PAIN Last administered on 3/1/ 19at 09:04; Start 04/10/18 at 20:00 Tramadol HCl (Ultram) 100 mg PRN QHS PRN PO PAIN Last administered on at 20:25; Start 04/10/18 at 20:00 Morphine Sulfate (Morphine Sulfate) 2 mg PRN Q2HR PRN IV PAIN Last administered on 04/14/18at 02:19; Start 04/10/18 at 20:00 Lactobacillus Rhamnosus (Culturelle) 1 cap BID PO Last administered on at 09:04; Start 04/12/18 at 21:00 Active Scripts Active Reported Aspir-Low (Aspirin) 81 Mg Tablet.dr 1 Tab PO HS Escitalopram Oxalate 10 Mg Tablet 1 Tab PO HS Omeprazole 40 Mg Capsule.dr 1 Cap PO DAILY Tizanidine Hcl 4 Mg Tablet 1 Tab PO BID Baclofen 20 Mg Tablet 10 Mg PO TID Fosinopril Sodium 40 Mg Tablet 20 Mg PO DAILY Amlodipine Besylate 10 Mg Tablet 5 Mg PO QHS Tramadol Hcl 50 Mg Tablet 50 Mg PO TID PRN Vital Signs Vital Signs Date Time Temp Pulse Resp B/P (MAP) Pulse Ox O2 Delivery O2 Flow Rate FiO2 04/14/18 11:00 98.6 66 18 122/56 (78) 98 Room Air 98.6 Labs Laboratory Tests Test 04/13/18 04:00 White Blood Count 8.1 x10^3/uL (4.0-11.0) Red Blood Count 3.51 x10^6/uL (4.30-5.70) Hemoglobin 11.6 g/dL (13.0-17.5) Hematocrit 33.3 % (39.0-53.0) Mean Corpuscular Volume 95 fL (79-100) Mean Corpuscular Hemoglobin 33 pg (25-35) Mean Corpuscular Hemoglobin Concent 35 g/dL (31-37) Red Cell Distribution Width 12.5 % (11.5-14.5) Platelet Count 211 x10^3/uL (140-400) Sodium Level 139 mmol/L (136-145) Potassium Level 3.3 mmol/L (3.5-5.1) Chloride Level 102 mmol/L (98-107) Carbon Dioxide Level 27 mmol/L (21-32) Anion Gap 10 (6-14) Blood Urea Nitrogen 20 mg/dL (8-26) Creatinine 1.5 mg/dL (0.7-1.3) Estimated GFR (Cockcroft-Gault) 47.3 Glucose Level 103 mg/dL (70-99) Calcium Level 8.7 mg/dL (8.5-10.1) Allergies Allergies Coded Allergies Type Severity Reaction Last Updated Verified Penicillins Allergy Intermediate swelling 06/09/13 Yes Disposition/Orders: D/C to Home Patient Instructions d/c planning 38 min ESTHER OLIVA MD Apr 14, 2018 15:30
[2018-04-14] MEDS ORDERED: SIMV20TA3 PO (15:32)
[2018-04-14] MEDS ORDERED: LACT1CAP19 PO (15:32)
[2018-04-14] MEDS ORDERED: POTA20TA4 PO (15:32)
[2018-04-14] MEDS ORDERED: CARV6.2511 PO (15:32)
--- NOTE | 2018-04-14 15:33 | DISCH ---
DISCHARGE INSTRUCTIONS Condition on Discharge Condition on Discharge: Stable Activity After Discharge Activity Instructions for Disc: Resume previous activity, Activity as tolerated Lifting Instructions after Dis: No heavy lifting, No pulling or pushing Exercise Instruction after Dis: Walk 10 min, 3 x per day Driving Instructions after Dis: Do not drive today Diet after Discharge Diet after Discharge: Cardiac Checks after Discharge Checks after discharge: Check blood press - daily Contacting the DR. after DC Call your doctor for: If your condition worsens ESTHER OLIVA MD Apr 14, 2018 15:33
[2018-04-14] MEDS ORDERED: POTASSIUM CHLORIDE 20 MEQ TABLET.ER. PO ONE (16:00)
--- NOTE | 2018-04-14 16:17 | NUR ---
Patient discharged, home self care, patient understands discharge instructions. Per Dr. Dejesus- no new prescriptions, all home medications stay the same. Patient understands that he is to make no changes in his home medications. Patient has Dr. Quiroz's number for follow up as needed. Patient alert and stable upon discharge. IV line discontinued. All belongings with patient. This RN accompanied patient downstairs where son picked him up in his car.
[2018-04-15] MEDS ORDERED: POTASSIUM CHLORIDE 20 MEQ TABLET.ER. PO SCH (08:00)
== END 2018-04-14 16:20 | disposition home or self-care (01) | DRG 392 ==
LOC: ER 11:27 → 5 SOUTH 14:42
PROVIDERS: ADMIT Internal Medicine; ATTEND Internal Medicine
DX: A09 Infectious gastroenteritis and colitis, unspecified (principal); N17.9 Acute kidney failure, unspecified; I10 Essential (primary) hypertension; E78.5 Hyperlipidemia, unspecified; E87.6 Hypokalemia; F17.210 Nicotine dependence, cigarettes, uncomplicated; F32.9 Major depressive disorder, single episode, unspecified; K21.9 Gastro-esophageal reflux disease without esophagitis; N40.0 Benign prostatic hyperplasia without lower urinary tract symptoms; Z80.9 Family history of malignant neoplasm, unspecified; Z82.49 Family history of ischemic heart disease and other diseases of the circulatory system; Z82.5 Family history of asthma and other chronic lower respiratory diseases; F10.10 Alcohol abuse, uncomplicated; M19.90 Unspecified osteoarthritis, unspecified site; Z88.0 Allergy status to penicillin; Z72.89 Other problems related to lifestyle
CPT/HCPCS: 36415; 74018; 74177; 80048; 80053; 82274; 83605; 85007; 85025; 85027; 85610; 85730; 86850; 86900; 86901; 87045; 87205; 87493; 96365; 96375; J0744; J2270; J2405; J3480; J3490; J7030; Q9967; 99285-25